=== PATIENT | female | born 1945 ===

== ENCOUNTER 2017-07-14 15:15 | Inpatient (IN) | payer MEDICARE ==
[2017-07-14 15:15] VITALS: BMI 29.9
[2017-07-14] MEDS ORDERED: Albuterol-Ipratrop 3 mg / 0.5 (3 ml) UD ONE ×2 (15:30→15:56)
--- NOTE | 2017-07-14 15:51 | C.PDOC ---
History Of Present Illness 71 y/o female with past medical history of asthma, multiple meds at home including Advair disk and Ventolin inhaler, reports increasing SOB over last couple days, cough productive of yellow sputum, and feeling feverish. Pt states she has been taking Tylenol but notes she breaks out in a sweat after taking it. Patient was seen in the office by Dr. Pitts today, who sent her to the ER for admission. Patient reports prior hospitalizations for asthma but no intubations. Patient reports she is on daily prednisone for a renal problem. Time Seen by Provider: 07/14/17 15:42 Chief Complaint (Nursing): Shortness Of Breath History Per: Patient History/Exam Limitations: no limitations Onset/Duration Of Symptoms: Days Current Symptoms Are (Timing): Still Present Associated Symptoms: Fever, Productive Cough. denies: Chills, Chest Pain, Dizziness, Anxiety Past Medical History Reviewed: Historical Data, Nursing Documentation, Vital Signs Vital Signs: Last Vital Signs Temp 98.1 F 07/14/17 15:45 Pulse 102 H 07/14/17 16:19 Resp 18 07/14/17 16:19 BP 131/78 07/14/17 16:19 Pulse Ox 100 07/14/17 16:19 - Medical History PMH: Anemia, Asthma, Bronchitis, HTN, Hypercholesterolemia Denies: Chronic Kidney Disease - [facility] Procedures COLONOSCOPY (11/20/13) ESOPHAGOGASTRODUODENOSCOPY [EGD] W/CLOSED BIOPSY (03/24/13) Family History: States: Unknown Family Hx Review Of Systems Except As Marked, All Systems Reviewed And Found Negative. Constitutional: Negative for: Fever, Chills Cardiovascular: Negative for: Chest Pain Respiratory: Positive for: Cough, Shortness of Breath Gastrointestinal: Negative for: Nausea, Vomiting, Abdominal Pain Musculoskeletal: Negative for: Neck Pain Skin: Negative for: Rash Neurological: Negative for: Headache, Dizziness Physical Exam - Physical Exam Appears: In Acute Distress (moderately short of breath) Skin: Normal Color, Warm, Dry Head: Atraumatic Eye(s): bilateral: Normal Inspection Nose: Normal Oral Mucosa: Moist Neck: Normal, Normal ROM Lymphatic: No Adenopathy Chest: Symmetrical Cardiovascular: Rhythm Regular (Tachycardic) Respiratory: Decreased Breath Sounds, Wheezing (inspiratory and expiratory) Gastrointestinal/Abdominal: Normal Exam, Soft Extremity: Normal ROM, No Pedal Edema Neurological/Psych: Oriented x3, Normal Speech (but in short sentences), Normal Cognition Gait: Steady ED Course And Treatment - Laboratory Results Result Diagrams: 07/14/17 16:01 07/14/17 16:01 Lab Interpretation: No Acute Changes (chronic renal insufficiency) - Radiology CXR: Interpreted by Me CXR Interpretation: Yes: No Acute Disease, Cardiomegaly Reevaluation Time: 17:46 Reassessment Condition: Unchanged (Patient did imporoved after nebulizer treatments but became acutely short of breath again after ambulating to the bathroom.) Disposition Discussed With : Cori Pitts Doctor Will See Patient In The: ED - Disposition Disposition: HOSPITALIZED Disposition Time: 17:47 Condition: FAIR - POA Present On Arrival: None - Clinical Impression Clinical Impression: Status asthmaticus - Scribe Statement The provider has reviewed the documentation as recorded by the Scribe SM All medical record entries made by the Scribe were at my direction and personally dictated by me. I have reviewed the chart and agree that the record accurately reflects my personal performance of the history, physical exam, medical decision making, and the department course for this patient. I have also personally directed, reviewed, and agree with the discharge instructions and disposition.
[2017-07-14] MEDS ORDERED: Albuterol-Ipratrop 3 mg / 0.5 (3 ml) UD IH STA (15:52)
[2017-07-14] MEDS ORDERED: Albuterol 0.083% Inhal Sol (2.5 mg/3 mL) UD IH STA (15:52)
[2017-07-14] MEDS ORDERED: Albuterol 0.042% Inhal Sol (1.25 mg/3 mL) UD ONE ×2 (15:57→17:19)
[2017-07-14 16:08] LABS: BASO # 0.1 K/uL (0.0-0.2); BASO % 0.9 % (0.0-2.0); EOS # 0.2 K/uL (0.0-0.7); EOS % 2.9 % (0.0-4.0); HEMATOCRIT 34.5 % (34.0-47.0); LYMPH # 1.8 K/uL (1.0-4.3); LYMPH % 22.2 % (20.0-40.0); MEAN CELL VOLUME 83.4 fL (81.0-99.0); MEAN CORPUSCULAR HEMOGLOBIN 27.2 pg (27.0-31.0); MEAN CORPUSCULAR HGB CONC 32.6 g/dL (33.0-37.0); MEAN PLATELET VOLUME 8.4 fL (7.2-11.7); MONO # 0.8 K/uL (0.0-0.8); MONO % 10.1 % (0.0-10.0); RED CELL DISTRIBUTION WIDTH 13.6 % (11.5-14.5); WHITE BLOOD COUNT 7.9 K/uL (4.8-10.8)
--- NOTE | 2017-07-14 16:08 | RAD ---
PROCEDURE: CHEST RADIOGRAPH, 1 VIEW HISTORY: SOB COMPARISON: None available. FINDINGS: LUNGS: Clear. PLEURA: No pneumothorax or pleural fluid seen. CARDIOVASCULAR: Normal. OSSEOUS STRUCTURES: No significant abnormalities. VISUALIZED UPPER ABDOMEN: Normal. OTHER FINDINGS: None. IMPRESSION: No active disease.
[2017-07-14 16:23] LABS: ALB/GLOB RATIO 1.3 (1.0-2.1); BILIRUBIN,TOTAL 0.7 mg/dL (0.2-1.3); POTASSIUM 4.7 mmol/L (3.6-5.2); TOTAL PROTEIN 7.5 g/dL (6.3-8.3)
[2017-07-14] MEDS ORDERED: Promethazine/Cod 6.25mg-10mg/5ml Syr UD ONE (18:06)
[2017-07-14] MEDS: Promethazine/Cod 6.25mg-10mg/5ml Syr UD PO PRN (18:09)
[2017-07-14] MEDS ORDERED: Albuterol 0.083% Inhal Sol (2.5 mg/3 mL) UD INH PRN (18:15)
[2017-07-14] MEDS ORDERED: Sodium Chloride 0.45% 1,000 ML IV SCH (18:30)
[2017-07-14] MEDS: Ipratropium 0.02% Inhal Soln (0.5 mg/2.5 ml) UD IH SCH ×2 (21:02→21:03)
[2017-07-14] MEDS: Albuterol 0.083% Inhal Sol (2.5 mg/3 mL) UD INH SCH (21:02)
[2017-07-14] MEDS: Budesonide 0.5 mg/2 ml Inhal Susp UD INH SCH ×2 (21:03)
[2017-07-14] MEDS: Ergocalciferol 50,000 Intl Units Cap PO SCH ×2 (21:47→22:21)
[2017-07-15] MEDS: Albuterol 0.083% Inhal Sol (2.5 mg/3 mL) UD INH SCH ×3 (01:04→13:16)
[2017-07-15] MEDS: Ipratropium 0.02% Inhal Soln (0.5 mg/2.5 ml) UD IH SCH ×3 (01:04→13:16)
[2017-07-15] MEDS ORDERED: MYCOPHENOLIC ACID 360 MG PO SCH (06:00)
[2017-07-15] MEDS: Home Med 1 UNIT PO SCH ×2 (06:28→19:25)
[2017-07-15] MEDS: Budesonide 0.5 mg/2 ml Inhal Susp UD INH SCH (07:13)
[2017-07-15] MEDS ORDERED: Azithromycin 500 MG in Sodium Chloride 0.9% 250 ML IVPB SCH (10:00)
[2017-07-15] MEDS: Azithromycin 500 MG in Sodium Chloride 0.9% 250 ML IVPB SCH (10:02)
--- NOTE | 2017-07-15 13:59 | VASCLAB ---
PROCEDURE: Lower Extremity Venous Duplex Exam. HISTORY: DVT PRIORS: None. TECHNIQUE: Bilateral common femoral, femoral, popliteal and posterior tibial, peroneal and great saphenous veins were evaluated. Flow was assessed with color Doppler, compressibility, assessment of phasic flow and augmentation response. Report prepared by DAVID Ferris, RVT FINDINGS: RIGHT: 1. Common Femoral Vein: 1.1. Compressibility - Fully compressible: Thrombus - None : Flow - Phasic: Augmentation -Normal: Reflux - None. 2. Femoral Vein: 2.1. Compressibility - Fully compressible: Thrombus - None : Flow - Phasic: Augmentation -Normal: Reflux - None. 3. Popliteal Vein: 3.1. Compressibility - Fully compressible: Thrombus - None : Flow - Phasic: Augmentation -Normal: Reflux - None. 4. Posterior Tibial Vein: 4.1. Compressibility - Fully compressible: Thrombus - None: Flow - Phasic: Augmentation -Normal: Reflux - None. 5. Peroneal Vein: 5.1. Compressibility - Fully compressible: Thrombus - None: Flow - Phasic: Augmentation -Normal: Reflux - None. 6. Great Saphenous Vein: 6.1. Compressibility - Fully compressible: Thrombus - None: Flow - Phasic: Augmentation - Normal: Reflux - None. LEFT: 1. Common Femoral Vein: 1.1. Compressibility - Fully compressible: Thrombus - None: Flow - Phasic: Augmentation -Normal: Reflux - None. 2. Femoral Vein: 2.1. Compressibility - Fully compressible: Thrombus - None: Flow - Phasic: Augmentation -Normal: Reflux - None. 3. Popliteal Vein: 3.1. Compressibility - Fully compressible: Thrombus - None : Flow - Phasic: Augmentation -Normal: Reflux - None. 4. Posterior Tibial Vein: 4.1. Compressibility - Fully compressible: Thrombus - None: Flow - Phasic: Augmentation -Normal: Reflux - None. 5. Peroneal Vein: 5.1. Compressibility - Fully compressible: Thrombus - None: Flow - Phasic: Augmentation -Normal: Reflux - None. 6. Great Saphenous Vein: 6.1. Compressibility - Fully compressible: Thrombus - None: Flow - Phasic: Augmentation - Normal: Reflux - None. OTHER FINDINGS: Right: None significant. Left: None significant. IMPRESSION: Right: No evidence of deep or superficial vein thrombosis of the right lower extremity. Normal valve function noted of the right side. Left: No evidence of deep or superficial vein thrombosis of the left lower extremity. Normal valve function noted of the left side.
[2017-07-15] MEDS ORDERED: Albuterol-Ipratrop 3 mg / 0.5 (3 ml) UD INH SCH (14:00)
[2017-07-15] MEDS ORDERED: Home Med 1 UNIT OU SCH (14:41)
--- NOTE | 2017-07-15 15:15 | CP.PCM.CON ---
History of Present Illness - History of Present Illness History of Present Illness: Initial Nephrology Consultation: Assessment: Stable Acute asthma exacerbation Sjogren syndrome with renal involvement (s/p kidney biopsy aug 2016) Hypertensive Chronic Kidney Disease (I12.9) Chronic Kidney Disease (N18.3) Stage 3 without proteinuria Anemia (D64.9), HTN (I12.9) Obesity Plan No acute need for renal replacement therapy at this time. Hypertension control with meds as ordered. Monitor Input/Output, daily weights and renal function with basic metabolic panel continue with Myfortic 2 tab bid. she is on IV steroids hence home dose prednisone 5 mg can be deferred. Anemia stable, LATRICE not indicated. Dose meds/antibiotics for reduced GFR. Avoid fleets enema/magnesium based laxatives. Avoid nephrotoxins/NSAIDs/ iodinated contrast (unless needed emergently) Glycemic control Further work up/management as per primary team Thanks for allowing me to participate in care of your patient. Will follow patient with you. Please call if any Qs Dr Zaid Wilson Office: [phone] Chief Complaint; Shortness of breath HPI: Pt is a 71 F with hx of bronchil asthma, obesity, CKD stage 3 (baseline cr 1.8) Sjogren syndrome with renal involvement (s/p kidney biopsy aug 2016) treated with plaquenil, myfortic and low dose prednisone came to hospital with c /o SOB with cough for last few days and being managed for asthma exacerbation. renal consult for CKD management Denies chest pain, palpitation, c/o shortness of breath, denies leg swelling Denies blood or bubbles in urine Denies OTC/herbal meds or NSAIDs No recent iodinated contrast exposure. No obvious episodes of low BP. ROS: Constitutional Symptoms: Denies fever. No chills. No Recent Weight Changes Eyes: denies change in vision, denies watery eyes, denies double vision Ears/Nose/Mouth/Throat: Denies Abnormal Taste. No Bad breath no Bad Taste. Cardiovascular: No chest pain. No palpitations. Pulmonary: c/o shortness of breath c/o cough. Gastrointestinal: denies abdominal pain No nausea. No vomiting. Denies change in bowel habits. Denies Bleeding Genitourinary: No Change in force of strain when urinating. No increase in urinary frequency. No pain while urinating. Denies blood in urine. Neurological: Denies headaches. No dizziness. Denies loss of balance. Denies weakness, denies tingling/numbness Dermatological: No Rash or Bruising or ulcers. Psychiatric: Denies Anxiety. No depression. Denies hallucinations. Rheumatological: No joint pain. Denies Joint swelling Endocrine: Denies tiredness/Fatigue denies Heat/Cold Intolerance. All other negative Physical Examination: General Appearance: Comfortable, in no acute respiratory distress, co-operative . obese Vitals reviewed and noted as below Head; Atraumatic, normocephalic ENT: no ulcers no thrush. Tongue is midline. Oropharynx: no rash or ulcers. EYES: Pupils are equal, round and reactive to light accommodation. Eye muscles and extraocular movement intact. Sclera is anicteric. Neck; supple no lymphadenopathy, no thyromegaly or bruit Lungs: mildly increased respiratory rate/effort. Breath sounds bilateral with basal expiratory wheezing Heart: Normal rate. s1s2 normal. No rub or gallop. Extremities: no edema. No varicose veins Neurological: Patient is alert, awake and oriented to person, place and time. No focal deficit. Strength bilateral appropriate and equal Skin: Warm and dry. Normal turgor. No rash. Palpitation: Normal elasticity for age Abdomen: Abdomen is soft. Bowel sounds +. There is no abdominal tenderness, no guarding/rigidity no organomegaly Psych: normal insight and normal affect/mood MSK: no joint tenderness or swelling. Digits and nails normal, no deformity : kidney or bladder not palpable Labs/imaging reviewed. Past medical history, past surgical history, family history, social history, allergy reviewed and noted as below Family hx: no hx of CKD. 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 urine pro/cr 160 mg/day Past Patient History - Past Medical History & Family History Past Medical History?: Yes - Past Social History Smoking Status: Never Smoked - CARDIAC Hx Hypercholesterolemia: Yes Hx Hypertension: Yes - PULMONARY Hx Asthma: Yes Hx Bronchitis: Yes - NEUROLOGICAL Hx Neurological Disorder: No - HEENT Hx HEENT Problems: Yes Other/Comment: HX OF LEFT EYE MINI STROKE - RENAL Hx Chronic Kidney Disease: No - ENDOCRINE/METABOLIC Hx Endocrine Disorders: No - HEMATOLOGICAL/ONCOLOGICAL Hx Anemia: Yes - INTEGUMENTARY Hx Dermatological Problems: No - MUSCULOSKELETAL/RHEUMATOLOGICAL Hx Musculoskeletal Disorders: Yes Hx Falls: No Other/Comment: SJOGRENS SYNDROME - GASTROINTESTINAL Hx Gastrointestinal Disorders: Yes Hx Gastroesophageal Reflux: Yes - GENITOURINARY/GYNECOLOGICAL Hx Genitourinary Disorders: No - PSYCHIATRIC Hx Substance Use: No - SURGICAL HISTORY Hx Surgeries: Yes Hx Section: Yes (X 2) Hx Hysterectomy: Yes - ANESTHESIA Hx Anesthesia: Yes Hx Anesthesia Reactions: No Hx Malignant Hyperthermia: No Has any member of the family had a problem w/ anesthesia?: No Meds Allergies/Adverse Reactions: Allergies Allergy/AdvReac Type Severity Reaction Status Date / Time meperidine [From Demerol] Allergy Verified 07/14/17 15:44 Penicillins Allergy Verified 07/14/17 15:44 - Medications Medications: Current Medications Albuterol Sulfate (Albuterol 0.083% Inhal Rosibel (2.5 Mg/3 Ml) Ud) 2.5 mg INH RQ4 PRN PRN Reason: Wheezing Albuterol/Ipratropium (Duoneb 3 Mg/0.5 Mg (3 Ml) Ud) 3 ml INH RQ6 [facility] Amlodipine Besylate (Norvasc) 5 mg PO DAILY [facility] Last Admin: 07/15/17 11:00 Dose: 5 mg Budesonide (Pulmicort Respules) 0.5 mg INH RBID [facility] Last Admin: 07/15/17 07:13 Dose: 0.5 mg Ergocalciferol (Drisdol 50,000 Intl Units Cap) 1 cap PO Q7D [facility] Last Admin: 07/14/17 22:21 Dose: Not Given Famotidine (Pepcid) 20 mg PO BID [facility] Last Admin: 07/15/17 10:02 Dose: 20 mg Heparin Sodium (Porcine) (Heparin) 5,000 units SC Q8 [facility] Last Admin: 07/15/17 14:13 Dose: Not Given Home Med (Home Med) 2 unit PO 0600,1900 [facility] Last Admin: 07/15/17 06:28 Dose: 2 unit Home Med (Home Med) 1 unit OU Q4 [facility] Hydroxychloroquine Sulfate (Plaquenil) 200 mg PO BID [facility] Last Admin: 07/15/17 10:02 Dose: 200 mg Sodium Chloride (Sodium Chloride 0.45%) 1,000 mls @ 40 mls/hr IV .Q24H [facility] Stop: 07/15/17 18:29 Last Admin: 07/14/17 18:54 Dose: 40 mls/hr Azithromycin 500 mg/ Sodium (Chloride) 250 mls @ 167 mls/hr IVPB DAILY [facility] Last Admin: 07/15/17 10:02 Dose: 167 mls/hr Methylprednisolone (Solu-Medrol) 60 mg IV Q6H [facility] Last Admin: 07/15/17 14:33 Dose: 60 mg Montelukast Sodium (Singulair) 10 mg PO HS [facility] Last Admin: 07/14/17 21:47 Dose: 10 mg Promethazine HCl/Codeine (Phenergan/Codeine Oral Syrup) 5 ml PO Q4 PRN PRN Reason: Cough Last Admin: 07/14/17 18:09 Dose: 5 ml Results - Vital Signs Recent Vital Signs: Last Vital Signs Temp 97.4 F L 07/15/17 07:56 Pulse 69 07/15/17 07:56 Resp 18 07/15/17 07:56 BP 112/72 07/15/17 07:56 Pulse Ox 98 07/15/17 07:56 - Labs Result Diagrams: 07/14/17 16:01 07/14/17 16:01 Labs: Laboratory Results - last 24 hr 07/14/17 07/14/17 07/14/17 16:01 16:01 16:42 WBC 7.9 RBC 4.14 Hgb 11.3 Hct 34.5 MCV 83.4 MCH 27.2 MCHC 32.6 L RDW 13.6 Plt Count 261 MPV 8.4 Neut % (Auto) 63.9 Lymph % (Auto) 22.2 [place] % (Auto) 10.1 H Eos % (Auto) 2.9 Baso % (Auto) 0.9 Neut # 5.1 Lymph # 1.8 [place] # 0.8 Eos # 0.2 Baso # 0.1 D-Dimer, Quantitative 544 H Sodium 137 Potassium 4.7 Chloride 103 Carbon Dioxide 22 Anion Gap 17 BUN 24 H Creatinine 1.7 H Est GFR ( Amer) 36 Est GFR (Non-Af Amer) 30 Random Glucose 97 Calcium 9.0 Total Bilirubin 0.7 AST 34 ALT 30 Alkaline Phosphatase 65 NT-Pro-B Natriuret Pep 121 Total Protein 7.5 Albumin 4.3 Globulin 3.2 Albumin/Globulin Ratio 1.3
--- NOTE | 2017-07-15 15:32 | NM ---
COMPARISON: Chest radiograph 07/14/2017. TECHNIQUE: 9.3 mCi Xe-133 Gas. 3.8 mCI technetium 99-m MAA administered intravenously. FINDINGS: VENTILATION COMPONENT: Normal. PERFUSION COMPONENT: Normal. IMPRESSION: Lowprobability ventilation perfusion scan for pulmonary embolism.
--- NOTE | 2017-07-15 15:46 | CP.PCM.HP ---
History of Present Illness - History of Present Illness History of Present Illness: Pt is a 71 year old female who presented to my office on 07/14/17 with wheezing and several sob of several days. Pt states for the last week she has had sob, wheezing, cough productive of yellow sptum and CRAWLEY. PT reports some subjective fever for witch she has bee taking Prn Tylenol. PT reports running out of inhalers as she was using them so often. PMHx: Osteoporosis Chronic tubulo-interstitial nephritis Asthma Hypercholesterolemia Disorder of bone Anemia Chronic Kidney disease Sicca Syndrome hypertension Allergies: Demerol Penicillin Family hx: Father- Cancer Mother- HTN Social Hx: neg. Smoker neg. ETOH Neg. Drugs Current meds: Advair Diskus 250 mcg-50 mcg 1 unit inhale BID Ventolin HFA 90 mcg 1-2 puffs inhale 4x/day PRN Albuterol sulfate 2.5 mg 3 ml inhale 4x/day Myfortic 360mg 2 tabs PO BID Prednisone 5 mg 1 tab PO QD Vitamin D3 1 cap po weekly Mycophenolate 360 mg 2 tabs PO BID Plaquenil 200 mg 1 tab PO BID Amlodipine 5 mg 1 tab PO QD Present on Admission - Present on Admission Any Indicators Present on Admission: No Review of Systems - Constitutional Constitutional: Chills, Fever - Cardiovascular Cardiovascular: Dyspnea on Exertion. absent: Diaphoresis, Pedal Edema, Syncope - Respiratory Respiratory: Cough, Dyspnea, Dyspnea on Exertion, Chest Congestion, Change in Mucous Color. absent: Hemoptysis - Gastrointestinal Gastrointestinal: absent: Abdominal Pain, Vomiting - Genitourinary Genitourinary: absent: Difficulty Urinating Past Patient History - Past Medical History & Family History Past Medical History?: Yes - Past Social History Smoking Status: Never Smoked - CARDIAC Hx Hypercholesterolemia: Yes Hx Hypertension: Yes - PULMONARY Hx Asthma: Yes Hx Bronchitis: Yes - NEUROLOGICAL Hx Neurological Disorder: No - HEENT Hx HEENT Problems: Yes Other/Comment: HX OF LEFT EYE MINI STROKE - RENAL Hx Chronic Kidney Disease: No - ENDOCRINE/METABOLIC Hx Endocrine Disorders: No - HEMATOLOGICAL/ONCOLOGICAL Hx Anemia: Yes - INTEGUMENTARY Hx Dermatological Problems: No - MUSCULOSKELETAL/RHEUMATOLOGICAL Hx Musculoskeletal Disorders: Yes Hx Falls: No Other/Comment: SJOGRENS SYNDROME - GASTROINTESTINAL Hx Gastrointestinal Disorders: Yes Hx Gastroesophageal Reflux: Yes - GENITOURINARY/GYNECOLOGICAL Hx Genitourinary Disorders: No - PSYCHIATRIC Hx Substance Use: No - SURGICAL HISTORY Hx Surgeries: Yes Hx Section: Yes (X 2) Hx Hysterectomy: Yes - ANESTHESIA Hx Anesthesia: Yes Hx Anesthesia Reactions: No Hx Malignant Hyperthermia: No Has any member of the family had a problem w/ anesthesia?: No Meds Allergies/Adverse Reactions: Allergies Allergy/AdvReac Type Severity Reaction Status Date / Time meperidine [From Demerol] Allergy Verified 07/14/17 15:44 Penicillins Allergy Verified 07/14/17 15:44 Physical Exam - Constitutional Appears: Non-toxic - Head Exam Head Exam: ATRAUMATIC - Eye Exam Eye Exam: EOMI, Normal appearance - ENT Exam ENT Exam: Mucous Membranes Moist - Neck Exam Neck exam: Positive for: Normal Inspection - Respiratory Exam Respiratory Exam: Prolonged Expiratory Phase, Rhonchi, Wheezes - Cardiovascular Exam Cardiovascular Exam: REGULAR RHYTHM, RRR, +S1, +S2. absent: JVD, Rubs - GI/Abdominal Exam GI & Abdominal Exam: Normal Bowel Sounds, Soft - Exam Exam: NORMAL INSPECTION External exam: NORMAL EXTERNAL EXAM - Extremities Exam Extremities exam: Positive for: normal inspection. Negative for: calf tenderness - Neurological Exam Neurological exam: Oriented x3 - Psychiatric Exam Psychiatric exam: Normal Affect, Normal Mood - Skin Skin Exam: Intact, Normal Color Results - Vital Signs Recent Vital Signs: Last Vital Signs Temp 97.4 F L 07/15/17 07:56 Pulse 69 07/15/17 07:56 Resp 18 07/15/17 07:56 BP 112/72 07/15/17 07:56 Pulse Ox 98 07/15/17 07:56 - Labs Result Diagrams: 07/14/17 16:01 07/14/17 16:01 Labs: Laboratory Results - last 24 hr 07/14/17 07/14/17 07/14/17 16:01 16:01 16:42 WBC 7.9 RBC 4.14 Hgb 11.3 Hct 34.5 MCV 83.4 MCH 27.2 MCHC 32.6 L RDW 13.6 Plt Count 261 MPV 8.4 Neut % (Auto) 63.9 Lymph % (Auto) 22.2 [place] % (Auto) 10.1 H Eos % (Auto) 2.9 Baso % (Auto) 0.9 Neut # 5.1 Lymph # 1.8 [place] # 0.8 Eos # 0.2 Baso # 0.1 D-Dimer, Quantitative 544 H Sodium 137 Potassium 4.7 Chloride 103 Carbon Dioxide 22 Anion Gap 17 BUN 24 H Creatinine 1.7 H Est GFR ( Amer) 36 Est GFR (Non-Af Amer) 30 Random Glucose 97 Calcium 9.0 Total Bilirubin 0.7 AST 34 ALT 30 Alkaline Phosphatase 65 NT-Pro-B Natriuret Pep 121 Total Protein 7.5 Albumin 4.3 Globulin 3.2 Albumin/Globulin Ratio 1.3 Assessment & Plan - Assessment and Plan (Free Text) Assessment: Asthma exacerbation; severe///still with significant sob with minimal activity bronchitis sjogrens chronic renal insuff admitted to telemetry V/Q is low prob and venous dopplers are negative solumedrol abnx nebx oxygen spoke to Dr. Pak last night and today with nephro Labs ordered for AM pt refused sq heparin, added compression boots for dvt prophylaxis - Date & Time Date: 07/15/17 Time: 16:19
--- NOTE | 2017-07-15 18:51 | CP.PCM.CON ---
History of Present Illness - History of Present Illness History of Present Illness: admitted with status asthmaticus, feels somewhat better today. pt admits to using advair prn only, not daily, leading to an exacerbation in the last 1 month Review of Systems - Constitutional Constitutional: Fatigue, Weakness - Respiratory Respiratory: Cough, Dyspnea on Exertion, Wheezing, Chest Congestion Past Patient History - Past Medical History & Family History Past Medical History?: Yes - Past Social History Smoking Status: Never Smoked - CARDIAC Hx Hypercholesterolemia: Yes Hx Hypertension: Yes - PULMONARY Hx Asthma: Yes Hx Bronchitis: Yes - NEUROLOGICAL Hx Neurological Disorder: No - HEENT Hx HEENT Problems: Yes Other/Comment: HX OF LEFT EYE MINI STROKE - RENAL Hx Chronic Kidney Disease: No - ENDOCRINE/METABOLIC Hx Endocrine Disorders: No - HEMATOLOGICAL/ONCOLOGICAL Hx Anemia: Yes - INTEGUMENTARY Hx Dermatological Problems: No - MUSCULOSKELETAL/RHEUMATOLOGICAL Hx Musculoskeletal Disorders: Yes Hx Falls: No Other/Comment: SJOGRENS SYNDROME - GASTROINTESTINAL Hx Gastrointestinal Disorders: Yes Hx Gastroesophageal Reflux: Yes - GENITOURINARY/GYNECOLOGICAL Hx Genitourinary Disorders: No - PSYCHIATRIC Hx Substance Use: No - SURGICAL HISTORY Hx Surgeries: Yes Hx Section: Yes (X 2) Hx Hysterectomy: Yes - ANESTHESIA Hx Anesthesia: Yes Hx Anesthesia Reactions: No Hx Malignant Hyperthermia: No Has any member of the family had a problem w/ anesthesia?: No Meds Allergies/Adverse Reactions: Allergies Allergy/AdvReac Type Severity Reaction Status Date / Time meperidine [From Demerol] Allergy Verified 07/14/17 15:44 Penicillins Allergy Verified 07/14/17 15:44 - Medications Medications: Current Medications Albuterol Sulfate (Albuterol 0.083% Inhal Rosibel (2.5 Mg/3 Ml) Ud) 2.5 mg INH RQ4 PRN PRN Reason: Wheezing Albuterol/Ipratropium (Duoneb 3 Mg/0.5 Mg (3 Ml) Ud) 3 ml INH RQ6 [facility] Amlodipine Besylate (Norvasc) 5 mg PO DAILY [facility] Last Admin: 07/15/17 11:00 Dose: 5 mg Budesonide (Pulmicort Respules) 0.5 mg INH RBID [facility] Last Admin: 07/15/17 07:13 Dose: 0.5 mg Ergocalciferol (Drisdol 50,000 Intl Units Cap) 1 cap PO Q7D [facility] Last Admin: 07/14/17 22:21 Dose: Not Given Famotidine (Pepcid) 20 mg PO BID [facility] Last Admin: 07/15/17 18:08 Dose: 20 mg Heparin Sodium (Porcine) (Heparin) 5,000 units SC Q8 [facility] Last Admin: 07/15/17 14:13 Dose: Not Given Home Med (Home Med) 2 unit PO 0600,1900 [facility] Last Admin: 07/15/17 06:28 Dose: 2 unit Home Med (Home Med) 1 unit OU Q4 [facility] Hydroxychloroquine Sulfate (Plaquenil) 200 mg PO BID [facility] Last Admin: 07/15/17 18:08 Dose: 200 mg Azithromycin 500 mg/ Sodium (Chloride) 250 mls @ 167 mls/hr IVPB DAILY [facility] Last Admin: 07/15/17 10:02 Dose: 167 mls/hr Methylprednisolone (Solu-Medrol) 60 mg IV Q6H [facility] Last Admin: 07/15/17 18:08 Dose: 60 mg Montelukast Sodium (Singulair) 10 mg PO HS [facility] Last Admin: 07/14/17 21:47 Dose: 10 mg Promethazine HCl/Codeine (Phenergan/Codeine Oral Syrup) 5 ml PO Q4 PRN PRN Reason: Cough Last Admin: 07/14/17 18:09 Dose: 5 ml Physical Exam - Constitutional Appears: Chronically Ill - Head Exam Head Exam: ATRAUMATIC, NORMOCEPHALIC - Eye Exam Eye Exam: Normal appearance - ENT Exam ENT Exam: Mucous Membranes Moist - Neck Exam Neck exam: Positive for: Normal Inspection - Respiratory Exam Respiratory Exam: Decreased Breath Sounds, Prolonged Expiratory Phase, Wheezes - Cardiovascular Exam Cardiovascular Exam: REGULAR RHYTHM, +S1, +S2 - GI/Abdominal Exam GI & Abdominal Exam: Normal Bowel Sounds - Rectal Exam Rectal Exam: Deferred - Neurological Exam Neurological exam: Alert, Oriented x3 - Psychiatric Exam Psychiatric exam: Normal Affect, Normal Mood - Skin Skin Exam: Intact Results - Vital Signs Recent Vital Signs: Last Vital Signs Temp 98.5 F 07/15/17 16:18 Pulse 113 H 07/15/17 16:18 Resp 20 07/15/17 16:18 BP 106/66 07/15/17 16:18 Pulse Ox 97 07/15/17 16:18 - Labs Result Diagrams: 07/14/17 16:01 07/14/17 16:01 Assessment & Plan (1) Status asthmaticus Status: Acute (2) Sjoegren syndrome Status: Chronic (3) Chronic renal insufficiency, stage III (moderate) Status: Chronic
[2017-07-15 19:05] LABS: ALB/GLOB RATIO 0.9 (1.0-2.1); BILIRUBIN,TOTAL 0.5 mg/dL (0.2-1.3); CALCIUM 8.4 mg/dl (8.6-10.4); POTASSIUM 4.5 mmol/L (3.6-5.2); TOTAL PROTEIN 7.9 g/dL (6.3-8.3)
[2017-07-15] MEDS: Albuterol-Ipratrop 3 mg / 0.5 (3 ml) UD INH SCH (19:08)
[2017-07-15] MEDS: Fluticasone-Salmeterol 500-50mcg Diskus INH SCH (19:11)
[2017-07-15] MEDS: guaiFENesin 600 mg ER Tab PO SCH (21:23)
[2017-07-16] MEDS: BLINK OU SCH ×6 (00:40→19:49)
[2017-07-16] MEDS: Albuterol-Ipratrop 3 mg / 0.5 (3 ml) UD INH SCH ×4 (01:10→19:13)
[2017-07-16] MEDS: Home Med 1 UNIT PO SCH ×2 (06:35→19:45)
[2017-07-16] MEDS: guaiFENesin 600 mg ER Tab PO SCH ×2 (09:05→17:02)
[2017-07-16] MEDS: Azithromycin 500 MG in Sodium Chloride 0.9% 250 ML IVPB SCH (10:25)
[2017-07-16] MEDS: Fluticasone-Salmeterol 500-50mcg Diskus INH SCH ×2 (11:22→19:13)
--- NOTE | 2017-07-16 14:50 | CP.PCM.PN ---
Subjective - Date & Time of Evaluation Date of Evaluation: 07/16/17 Time of Evaluation: 14:48 - Subjective Subjective: Pt still feels sob but repors still sob when she walks a little. Less cough , still wheezing no fever, no chest pain Objective - Vital Signs/Intake and Output Vital Signs (last 24 hours): Temp Pulse Resp BP Pulse Ox 97.9 F 91 H 20 111/72 99 07/16/17 07:59 07/16/17 07:59 07/16/17 07:59 07/16/17 07:59 07/16/17 07:59 Intake and Output: 07/16/17 07/16/17 06:59 18:59 Intake Total 710 550 Balance 710 550 - Medications Medications: Current Medications Albuterol Sulfate (Albuterol 0.083% Inhal Rosibel (2.5 Mg/3 Ml) Ud) 2.5 mg INH RQ4 PRN PRN Reason: Wheezing Albuterol/Ipratropium (Duoneb 3 Mg/0.5 Mg (3 Ml) Ud) 3 ml INH RQ6 [facility] Last Admin: 07/16/17 14:30 Dose: 3 ml Amlodipine Besylate (Norvasc) 5 mg PO DAILY [facility] Last Admin: 07/16/17 09:05 Dose: 5 mg Ergocalciferol (Drisdol 50,000 Intl Units Cap) 1 cap PO Q7D [facility] Last Admin: 07/14/17 22:21 Dose: Not Given Famotidine (Pepcid) 20 mg PO BID [facility] Last Admin: 07/16/17 09:05 Dose: 20 mg Guaifenesin (Mucinex La) 600 mg PO BID [facility] Last Admin: 07/16/17 09:05 Dose: 600 mg Home Med (Home Med) 2 unit PO 0600,1900 [facility] Last Admin: 07/16/17 06:35 Dose: 2 unit Home Med (Home Med) 1 unit OU Q4 [facility] Last Admin: 07/16/17 11:49 Dose: 1 unit Hydroxychloroquine Sulfate (Plaquenil) 200 mg PO BID [facility] Last Admin: 07/16/17 10:35 Dose: 200 mg Azithromycin 500 mg/ Sodium (Chloride) 250 mls @ 167 mls/hr IVPB DAILY [facility] Last Admin: 07/16/17 10:25 Dose: 167 mls/hr Methylprednisolone (Solu-Medrol) 60 mg IV Q6H [facility] Last Admin: 07/16/17 12:43 Dose: 60 mg Montelukast Sodium (Singulair) 10 mg PO HS [facility] Last Admin: 07/15/17 21:23 Dose: 10 mg Promethazine HCl/Codeine (Phenergan/Codeine Oral Syrup) 5 ml PO Q4 PRN PRN Reason: Cough Last Admin: 07/14/17 18:09 Dose: 5 ml Fluticasone/Salmeterol (Advair Diskus 500/50) 1 puff INH RQ12 [facility] Last Admin: 07/16/17 11:22 Dose: 1 puff Temazepam (Restoril) 15 mg PO HS PRN PRN Reason: Insomnia Last Admin: 07/15/17 21:29 Dose: 15 mg - Labs Labs: 07/14/17 16:01 07/15/17 17:28 - Constitutional Appears: Non-toxic - Eye Exam Eye Exam: Normal appearance - ENT Exam ENT Exam: Mucous Membranes Moist - Respiratory Exam Respiratory Exam: Rhonchi, Wheezes - Cardiovascular Exam Cardiovascular Exam: REGULAR RHYTHM, RRR - GI/Abdominal Exam GI & Abdominal Exam: Normal Bowel Sounds - Extremities Exam Extremities Exam: absent: Pedal Edema Assessment and Plan - Assessment and Plan (Free Text) Assessment: Status Asthmaticus bronchitis still very tight a little improvement nevetheless cont nebx, steroids anbx pulmonogyst follwoing renal sjogrens cont meds labs in am
--- NOTE | 2017-07-16 15:08 | CP.PCM.PN ---
Subjective - Date & Time of Evaluation Date of Evaluation: 07/16/17 Time of Evaluation: 15:07 - Subjective Subjective: Follow up Nephrology Consultation: Assessment: Stable Acute asthma exacerbation Sjogren syndrome with renal involvement (s/p kidney biopsy aug 2016) Hypertensive Chronic Kidney Disease (I12.9) Chronic Kidney Disease (N18.3) Stage 3 without proteinuria Anemia (D64.9), HTN (I12.9) Obesity Plan No acute need for renal replacement therapy at this time. Hypertension control with meds as ordered. Monitor Input/Output, daily weights and renal function with basic metabolic panel continue with Myfortic 2 tab bid. she is on IV steroids hence home dose prednisone 5 mg can be deferred. Anemia stable, LATRICE not indicated. Dose meds/antibiotics for reduced GFR. Avoid fleets enema/magnesium based laxatives. Avoid nephrotoxins/NSAIDs/ iodinated contrast (unless needed emergently) Glycemic control Further work up/management as per primary team Thanks for allowing me to participate in care of your patient. Will follow patient with you. Please call if any Qs Dr Zaid Wilson Office: [phone] Chief Complaint; Shortness of breath HPI: Pt is a 71 F with hx of bronchil asthma, obesity, CKD stage 3 (baseline cr 1.8) Sjogren syndrome with renal involvement (s/p kidney biopsy aug 2016) treated with plaquenil, myfortic and low dose prednisone came to hospital with c /o SOB with cough for last few days and being managed for asthma exacerbation. renal consult for CKD management c/o Denies chest pain, palpitation, c/o shortness of breath with wheezing although better, denies leg swelling Physical Examination: General Appearance: Comfortable, in no acute respiratory distress, co-operative . obese Vitals reviewed and noted as below Head; Atraumatic, normocephalic ENT: no ulcers no thrush. Tongue is midline. Oropharynx: no rash or ulcers. EYES: Pupils are equal, round and reactive to light accommodation. Eye muscles and extraocular movement intact. Sclera is anicteric. Neck; supple no lymphadenopathy, no thyromegaly or bruit Lungs: normal respiratory rate/effort. Breath sounds bilateral with basal expiratory wheezing Heart: Normal rate. s1s2 normal. No rub or gallop. Extremities: no edema. No varicose veins Neurological: Patient is alert, awake and oriented to person, place and time. No focal deficit. Strength bilateral appropriate and equal Skin: Warm and dry. Normal turgor. No rash. Palpitation: Normal elasticity for age Abdomen: Abdomen is soft. Bowel sounds +. There is no abdominal tenderness, no guarding/rigidity no organomegaly Psych: normal insight and normal affect/mood MSK: no joint tenderness or swelling. Digits and nails normal, no deformity : kidney or bladder not palpable Labs/imaging reviewed. Past medical history, past surgical history, family history, social history, allergy reviewed and noted as below Family hx: no hx of CKD. 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 urine pro/cr 160 mg/day Objective - Vital Signs/Intake and Output Vital Signs (last 24 hours): Temp Pulse Resp BP Pulse Ox 97.9 F 91 H 20 111/72 99 07/16/17 07:59 07/16/17 07:59 07/16/17 07:59 07/16/17 07:59 07/16/17 07:59 Intake and Output: 07/16/17 07/16/17 06:59 18:59 Intake Total 710 550 Balance 710 550 - Medications Medications: Current Medications Albuterol Sulfate (Albuterol 0.083% Inhal Rosibel (2.5 Mg/3 Ml) Ud) 2.5 mg INH RQ4 PRN PRN Reason: Wheezing Albuterol/Ipratropium (Duoneb 3 Mg/0.5 Mg (3 Ml) Ud) 3 ml INH RQ6 [facility] Last Admin: 07/16/17 14:30 Dose: 3 ml Amlodipine Besylate (Norvasc) 5 mg PO DAILY [facility] Last Admin: 07/16/17 09:05 Dose: 5 mg Amlodipine Besylate (Norvasc) 5 mg PO DAILY [facility] Ergocalciferol (Drisdol 50,000 Intl Units Cap) 1 cap PO Q7D [facility] Last Admin: 07/14/17 22:21 Dose: Not Given Famotidine (Pepcid) 20 mg PO BID [facility] Last Admin: 07/16/17 09:05 Dose: 20 mg Guaifenesin (Mucinex La) 600 mg PO BID [facility] Last Admin: 07/16/17 09:05 Dose: 600 mg Home Med (Home Med) 2 unit PO 0600,1900 [facility] Last Admin: 07/16/17 06:35 Dose: 2 unit Home Med (Home Med) 1 unit OU Q4 [facility] Last Admin: 07/16/17 11:49 Dose: 1 unit Home Med (Montelukast Sodium [Singulair]) 5 mg PO DAILY [facility] Home Med (Simvastatin [Zocor]) 10 mg PO HS [facility] Hydroxychloroquine Sulfate (Plaquenil) 200 mg PO BID [facility] Last Admin: 07/16/17 10:35 Dose: 200 mg Azithromycin 500 mg/ Sodium (Chloride) 250 mls @ 167 mls/hr IVPB DAILY [facility] Last Admin: 07/16/17 10:25 Dose: 167 mls/hr Methylprednisolone (Solu-Medrol) 60 mg IV Q6H [facility] Last Admin: 07/16/17 12:43 Dose: 60 mg Montelukast Sodium (Singulair) 10 mg PO HS [facility] Last Admin: 07/15/17 21:23 Dose: 10 mg Mycophenolate Mofetil (Cellcept) 500 mg PO BID [facility] Promethazine HCl/Codeine (Phenergan/Codeine Oral Syrup) 5 ml PO Q4 PRN PRN Reason: Cough Last Admin: 07/14/17 18:09 Dose: 5 ml Fluticasone/Salmeterol (Advair Diskus 500/50) 1 puff INH RQ12 [facility] Last Admin: 07/16/17 11:22 Dose: 1 puff Temazepam (Restoril) 15 mg PO HS PRN PRN Reason: Insomnia Last Admin: 07/15/17 21:29 Dose: 15 mg - Labs Labs: 07/14/17 16:01 07/15/17 17:28
[2017-07-16] MEDS ORDERED: Rosuvastatin Calcium 2.5 mg Tab PO SCH (22:00)
[2017-07-17] MEDS: BLINK OU SCH ×4 (00:41→12:54)
[2017-07-17] MEDS: Promethazine/Cod 6.25mg-10mg/5ml Syr UD PO PRN (00:54)
[2017-07-17] MEDS: Albuterol-Ipratrop 3 mg / 0.5 (3 ml) UD INH SCH ×4 (01:13→19:15)
[2017-07-17] MEDS: Home Med 1 UNIT PO SCH ×2 (06:54→18:28)
[2017-07-17] MEDS: Fluticasone-Salmeterol 500-50mcg Diskus INH SCH (07:41)
[2017-07-17 07:42] LABS: HEMATOCRIT 30.3 % (34.0-47.0); MEAN CELL VOLUME 83.7 fL (81.0-99.0); MEAN CORPUSCULAR HEMOGLOBIN 27.5 pg (27.0-31.0); MEAN CORPUSCULAR HGB CONC 32.9 g/dL (33.0-37.0); RED CELL DISTRIBUTION WIDTH 13.7 % (11.5-14.5)
[2017-07-17 07:45] LABS: WHITE BLOOD COUNT 17.3 K/uL (4.8-10.8)
[2017-07-17 08:06] LABS: ALB/GLOB RATIO 1.4 (1.0-2.1); BILIRUBIN,TOTAL 0.4 mg/dL (0.2-1.3); CALCIUM 7.9 mg/dl (8.6-10.4); POTASSIUM 4.3 mmol/L (3.6-5.2); TOTAL PROTEIN 5.8 g/dL (6.3-8.3)
--- NOTE | 2017-07-17 08:57 | CP.PCM.PN ---
Subjective - Date & Time of Evaluation Date of Evaluation: 07/17/17 Time of Evaluation: 08:56 - Subjective Subjective: Follow up Nephrology Consultation: Assessment: Stable Acute asthma exacerbation Sjogren syndrome with renal involvement (s/p kidney biopsy aug 2016) Hypertensive Chronic Kidney Disease (I12.9) Chronic Kidney Disease (N18.3) Stage 3 without proteinuria Anemia (D64.9), HTN (I12.9) Obesity Plan No acute need for renal replacement therapy at this time. Hypertension control with meds as ordered. Monitor Input/Output, daily weights and renal function with basic metabolic panel continue with Myfortic 2 tab bid. she is on IV steroids hence home dose prednisone 5 mg can be deferred. d/c cellcept as pt already on myfortic. she is also on plaquenil Anemia stable, LATRICE not indicated. Dose meds/antibiotics for reduced GFR. Avoid fleets enema/magnesium based laxatives. Avoid nephrotoxins/NSAIDs/ iodinated contrast (unless needed emergently) Glycemic control Further work up/management as per primary team Thanks for allowing me to participate in care of your patient. Will follow patient with you. Please call if any Qs Dr Zaid Wilson Office: [phone] Chief Complaint; Shortness of breath HPI: Pt is a 71 F with hx of bronchil asthma, obesity, CKD stage 3 (baseline cr 1.8) Sjogren syndrome with renal involvement (s/p kidney biopsy aug 2016) treated with plaquenil, myfortic and low dose prednisone came to hospital with c /o SOB with cough for last few days and being managed for asthma exacerbation. renal consult for CKD management Denies chest pain, palpitation, c/o shortness of breath with wheezing although better, denies leg swelling upset about med change Physical Examination: General Appearance: Comfortable, in no acute respiratory distress, co-operative . obese Vitals reviewed and noted as below Head; Atraumatic, normocephalic ENT: no ulcers no thrush. Tongue is midline. Oropharynx: no rash or ulcers. EYES: Pupils are equal, round and reactive to light accommodation. Eye muscles and extraocular movement intact. Sclera is anicteric. Neck; supple no lymphadenopathy, no thyromegaly or bruit Lungs: normal respiratory rate/effort. Breath sounds bilateral with diffuse expiratory wheezing Heart: Normal rate. s1s2 normal. No rub or gallop. Extremities: no edema. No varicose veins Neurological: Patient is alert, awake and oriented to person, place and time. No focal deficit. Strength bilateral appropriate and equal Skin: Warm and dry. Normal turgor. No rash. Palpitation: Normal elasticity for age Abdomen: Abdomen is soft. Bowel sounds +. There is no abdominal tenderness, no guarding/rigidity no organomegaly Psych: normal insight and normal affect/mood MSK: no joint tenderness or swelling. Digits and nails normal, no deformity : kidney or bladder not palpable Labs/imaging reviewed. Past medical history, past surgical history, family history, social history, allergy reviewed and noted as below Family hx: no hx of CKD. 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 urine pro/cr 160 mg/day Objective - Vital Signs/Intake and Output Vital Signs (last 24 hours): Temp Pulse Resp BP Pulse Ox 97.3 F L 93 H 18 123/73 95 07/17/17 08:16 07/17/17 08:16 07/17/17 08:16 07/17/17 08:16 07/17/17 08:16 Intake and Output: 07/17/17 07/17/17 06:59 18:59 Intake Total 540 Balance 540 - Medications Medications: Current Medications Albuterol Sulfate (Albuterol 0.083% Inhal Rosibel (2.5 Mg/3 Ml) Ud) 2.5 mg INH RQ4 PRN PRN Reason: Wheezing Albuterol/Ipratropium (Duoneb 3 Mg/0.5 Mg (3 Ml) Ud) 3 ml INH RQ6 [facility] Last Admin: 07/17/17 07:41 Dose: 3 ml Amlodipine Besylate (Norvasc) 5 mg PO 0800 [facility] Ergocalciferol (Drisdol 50,000 Intl Units Cap) 1 cap PO Q7D [facility] Last Admin: 07/14/17 22:21 Dose: Not Given Famotidine (Pepcid) 20 mg PO BID [facility] Last Admin: 07/16/17 17:02 Dose: 20 mg Guaifenesin (Mucinex La) 600 mg PO BID [facility] Last Admin: 07/16/17 17:02 Dose: 600 mg Home Med (Home Med) 2 unit PO 0600,1900 [facility] Last Admin: 07/17/17 06:54 Dose: 2 unit Home Med (Home Med) 1 unit OU Q4 [facility] Last Admin: 07/17/17 08:40 Dose: 1 unit Hydroxychloroquine Sulfate (Plaquenil) 200 mg PO 0800,1800 [facility] Azithromycin 500 mg/ Sodium (Chloride) 250 mls @ 167 mls/hr IVPB DAILY [facility] Last Admin: 07/16/17 10:25 Dose: 167 mls/hr Methylprednisolone (Solu-Medrol) 60 mg IV Q6H [facility] Last Admin: 07/17/17 06:55 Dose: 60 mg Montelukast Sodium (Singulair) 10 mg PO HS [facility] Last Admin: 07/16/17 21:39 Dose: 10 mg Montelukast Sodium (Singulair) 5 mg PO HS [facility] Promethazine HCl/Codeine (Phenergan/Codeine Oral Syrup) 5 ml PO Q4 PRN PRN Reason: Cough Last Admin: 07/17/17 00:54 Dose: 5 ml Rosuvastatin Calcium (Crestor) 2.5 mg PO HS [facility] Last Admin: 07/16/17 21:44 Dose: Not Given Fluticasone/Salmeterol (Advair Diskus 500/50) 1 puff INH RQ12 [facility] Last Admin: 07/17/17 07:41 Dose: 1 puff Temazepam (Restoril) 15 mg PO HS PRN PRN Reason: Insomnia Last Admin: 07/16/17 21:42 Dose: 15 mg - Labs Labs: 07/17/17 07:30 07/17/17 07:30
[2017-07-17] MEDS: guaiFENesin 600 mg ER Tab PO SCH ×2 (09:26→17:21)
[2017-07-17] MEDS: Azithromycin 500 MG in Sodium Chloride 0.9% 250 ML IVPB SCH (09:27)
--- NOTE | 2017-07-17 10:35 | CP.PCM.PN ---
Subjective - Date & Time of Evaluation Date of Evaluation: 07/17/17 Time of Evaluation: 10:37 - Subjective Subjective: Pt feels better, but has not been able to walk arround today. Pt reports having a good night, but just concerned that some of her meds were not given at the exact time she takes them at home. I addressed that with the nurse this AM as to reassure the patient. Pt denies chest pain. SOB overall is less. Objective - Vital Signs/Intake and Output Vital Signs (last 24 hours): Temp Pulse Resp BP Pulse Ox 97.3 F L 93 H 18 123/73 95 07/17/17 08:16 07/17/17 08:16 07/17/17 08:16 07/17/17 08:16 07/17/17 08:16 Intake and Output: 07/17/17 07/17/17 06:59 18:59 Intake Total 540 Balance 540 - Medications Medications: Current Medications Albuterol Sulfate (Albuterol 0.083% Inhal Rosibel (2.5 Mg/3 Ml) Ud) 2.5 mg INH RQ4 PRN PRN Reason: Wheezing Albuterol/Ipratropium (Duoneb 3 Mg/0.5 Mg (3 Ml) Ud) 3 ml INH RQ6 [facility] Last Admin: 07/17/17 07:41 Dose: 3 ml Amlodipine Besylate (Norvasc) 5 mg PO 0800 [facility] Last Admin: 07/17/17 08:56 Dose: 5 mg Ergocalciferol (Drisdol 50,000 Intl Units Cap) 1 cap PO Q7D [facility] Last Admin: 07/14/17 22:21 Dose: Not Given Famotidine (Pepcid) 20 mg PO BID [facility] Last Admin: 07/17/17 09:26 Dose: 20 mg Guaifenesin (Mucinex La) 600 mg PO BID [facility] Last Admin: 07/17/17 09:26 Dose: 600 mg Home Med (Home Med) 2 unit PO 0600,1900 [facility] Last Admin: 07/17/17 06:54 Dose: 2 unit Home Med (Home Med) 1 unit OU Q4 [facility] Last Admin: 07/17/17 08:40 Dose: 1 unit Hydroxychloroquine Sulfate (Plaquenil) 200 mg PO 0800,1800 [facility] Last Admin: 07/17/17 08:57 Dose: 200 mg Azithromycin 500 mg/ Sodium (Chloride) 250 mls @ 167 mls/hr IVPB DAILY [facility] Last Admin: 07/17/17 09:27 Dose: 167 mls/hr Methylprednisolone (Solu-Medrol) 60 mg IV Q6H [facility] Last Admin: 07/17/17 06:55 Dose: 60 mg Montelukast Sodium (Singulair) 5 mg PO HS [facility] Montelukast Sodium (Singulair) 10 mg PO HS [facility] Promethazine HCl/Codeine (Phenergan/Codeine Oral Syrup) 5 ml PO Q4 PRN PRN Reason: Cough Last Admin: 07/17/17 00:54 Dose: 5 ml Fluticasone/Salmeterol (Advair Diskus 500/50) 1 puff INH RQ12 [facility] Last Admin: 07/17/17 07:41 Dose: 1 puff Temazepam (Restoril) 15 mg PO HS PRN PRN Reason: Insomnia Last Admin: 07/16/17 21:42 Dose: 15 mg - Labs Labs: 07/17/17 07:30 07/17/17 07:30 - Constitutional Appears: Well - Eye Exam Eye Exam: Normal appearance - ENT Exam ENT Exam: Mucous Membranes Moist - Respiratory Exam Respiratory Exam: Wheezes Additional comments: But overall better air exchange - Cardiovascular Exam Cardiovascular Exam: REGULAR RHYTHM, RRR, +S1, +S2. absent: JVD - Extremities Exam Extremities Exam: Normal Inspection. absent: Pedal Edema - Psychiatric Exam Psychiatric exam: Normal Affect - Skin Skin Exam: Dry, Intact Assessment and Plan - Assessment and Plan (Free Text) Assessment: 1. severe asthma exacerbation showing progress better air exchange cont nebs, and steroids 2. brochitis; cont zithromax 3. wbc up blood cultures neg and no fever likley secondary to steroids will watch closely 4. renal; stable 5. anemia noted change in hgb stool guiac monitor
[2017-07-17] MEDS: Aritificial Tears (15ml) OU SCH (20:00)
[2017-07-18] MEDS: Aritificial Tears (15ml) OU SCH ×6 (00:27→21:01)
[2017-07-18] MEDS: Albuterol-Ipratrop 3 mg / 0.5 (3 ml) UD INH SCH ×4 (01:45→19:19)
[2017-07-18] MEDS: Promethazine/Cod 6.25mg-10mg/5ml Syr UD PO PRN (06:03)
[2017-07-18] MEDS: Home Med 1 UNIT PO SCH ×2 (06:04→18:29)
[2017-07-18 07:47] LABS: HEMATOCRIT 30.3 % (34.0-47.0); MEAN CELL VOLUME 83.5 fL (81.0-99.0); MEAN CORPUSCULAR HEMOGLOBIN 28.2 pg (27.0-31.0); MEAN CORPUSCULAR HGB CONC 33.8 g/dL (33.0-37.0); MEAN PLATELET VOLUME 8.1 fL (7.2-11.7); RED CELL DISTRIBUTION WIDTH 13.9 % (11.5-14.5); WHITE BLOOD COUNT 14.5 K/uL (4.8-10.8)
[2017-07-18 08:08] LABS: CALCIUM 7.8 mg/dl (8.6-10.4); POTASSIUM 4.1 mmol/L (3.6-5.2)
[2017-07-18] MEDS: Fluticasone-Salmeterol 500-50mcg Diskus INH SCH ×2 (08:26→19:18)
[2017-07-18] MEDS: guaiFENesin 600 mg ER Tab PO SCH ×2 (09:03→18:29)
[2017-07-18] MEDS: Azithromycin 500 MG in Sodium Chloride 0.9% 250 ML IVPB SCH (09:06)
--- NOTE | 2017-07-18 15:56 | CP.PCM.PN ---
Subjective - Date & Time of Evaluation Date of Evaluation: 07/18/17 Time of Evaluation: 15:56 - Subjective Subjective: Pt states she feels bettter but has only walked to the bathroom feels as if sputum is "stock' inside. no chest pain eating ok Objective - Vital Signs/Intake and Output Vital Signs (last 24 hours): Temp Pulse Resp BP Pulse Ox 98 F 112 H 20 126/58 L 95 07/18/17 15:00 07/18/17 15:00 07/18/17 15:00 07/18/17 15:00 07/18/17 15:00 Intake and Output: 07/18/17 07/18/17 06:59 18:59 Intake Total 510 490 Balance 510 490 - Medications Medications: Current Medications Albuterol Sulfate (Albuterol 0.083% Inhal Rosibel (2.5 Mg/3 Ml) Ud) 2.5 mg INH RQ4 PRN PRN Reason: Wheezing Albuterol/Ipratropium (Duoneb 3 Mg/0.5 Mg (3 Ml) Ud) 3 ml INH RQ6 [facility] Last Admin: 07/18/17 14:39 Dose: 3 ml Amlodipine Besylate (Norvasc) 5 mg PO 0800 [facility] Last Admin: 07/18/17 07:48 Dose: 5 mg Artificial Tears (Artificial Tears) 1 ml OU Q4 [facility] Last Admin: 07/18/17 12:30 Dose: 1 drop Ergocalciferol (Drisdol 50,000 Intl Units Cap) 1 cap PO Q7D [facility] Last Admin: 07/14/17 22:21 Dose: Not Given Famotidine (Pepcid) 20 mg PO BID [facility] Last Admin: 07/18/17 09:03 Dose: 20 mg Guaifenesin (Mucinex La) 600 mg PO BID [facility] Last Admin: 07/18/17 09:03 Dose: 600 mg Home Med (Home Med) 2 unit PO 0600,1900 [facility] Last Admin: 07/18/17 06:04 Dose: 2 unit Hydroxychloroquine Sulfate (Plaquenil) 200 mg PO 0800,1800 [facility] Last Admin: 07/18/17 07:48 Dose: 200 mg Azithromycin 500 mg/ Sodium (Chloride) 250 mls @ 167 mls/hr IVPB DAILY [facility] Last Admin: 07/18/17 09:06 Dose: 167 mls/hr Methylprednisolone (Solu-Medrol) 60 mg IV Q6H [facility] Last Admin: 07/18/17 13:50 Dose: 60 mg Montelukast Sodium (Singulair) 5 mg PO HS [facility] Montelukast Sodium (Singulair) 10 mg PO HS [facility] Last Admin: 07/17/17 22:36 Dose: 10 mg Promethazine HCl/Codeine (Phenergan/Codeine Oral Syrup) 5 ml PO Q4 PRN PRN Reason: Cough Last Admin: 07/18/17 06:03 Dose: 5 ml Fluticasone/Salmeterol (Advair Diskus 500/50) 1 puff INH RQ12 [facility] Last Admin: 07/18/17 08:26 Dose: 1 puff Temazepam (Restoril) 15 mg PO HS PRN PRN Reason: Insomnia Last Admin: 07/17/17 22:42 Dose: 15 mg - Labs Labs: 07/18/17 07:36 07/18/17 07:36 - Constitutional Appears: Non-toxic, No Acute Distress - Eye Exam Eye Exam: Normal appearance - ENT Exam ENT Exam: Mucous Membranes Moist - Respiratory Exam Respiratory Exam: Prolonged Expiratory Phase, Wheezes - Cardiovascular Exam Cardiovascular Exam: REGULAR RHYTHM, RRR - GI/Abdominal Exam GI & Abdominal Exam: Soft, Normal Bowel Sounds. absent: Tenderness - Extremities Exam Extremities Exam: absent: Pedal Edema Assessment and Plan - Assessment and Plan (Free Text) Assessment: asthma: still wheezing a lot cont steroids pulmonologyst on board will check oxygen with ambulation by PT renal stable calcium; will replace
--- NOTE | 2017-07-18 17:52 | CP.PCM.PN ---
Subjective - Date & Time of Evaluation Date of Evaluation: 07/18/17 Time of Evaluation: 17:51 - Subjective Subjective: Follow up Nephrology Consultation: Assessment: Stable Acute asthma exacerbation Sjogren syndrome with renal involvement (s/p kidney biopsy aug 2016) Hypertensive Chronic Kidney Disease (I12.9) Chronic Kidney Disease (N18.3) Stage 3 without proteinuria Anemia (D64.9), HTN (I12.9) Obesity Plan No acute need for renal replacement therapy at this time. Hypertension control with meds as ordered. Monitor Input/Output, daily weights and renal function with basic metabolic panel continue with Myfortic 2 tab bid. she is on IV steroids hence home dose prednisone 5 mg can be deferred. d/c cellcept as pt already on myfortic. she is also on plaquenil Anemia stable, LATRICE not indicated. Dose meds/antibiotics for reduced GFR. Avoid fleets enema/magnesium based laxatives. Avoid nephrotoxins/NSAIDs/ iodinated contrast (unless needed emergently) Glycemic control Further work up/management as per primary team Thanks for allowing me to participate in care of your patient. Will follow patient with you. Please call if any Qs Dr Zaid Wilson Office: [phone] Chief Complaint; Shortness of breath HPI: Pt is a 71 F with hx of bronchil asthma, obesity, CKD stage 3 (baseline cr 1.8) Sjogren syndrome with renal involvement (s/p kidney biopsy aug 2016) treated with plaquenil, myfortic and low dose prednisone came to hospital with c /o SOB with cough for last few days and being managed for asthma exacerbation. renal consult for CKD management Denies chest pain, palpitation, c/o shortness of breath with wheezing although better, denies leg swelling Physical Examination: General Appearance: Comfortable, in no acute respiratory distress, co-operative . obese Vitals reviewed and noted as below Head; Atraumatic, normocephalic ENT: no ulcers no thrush. Tongue is midline. Oropharynx: no rash or ulcers. EYES: Pupils are equal, round and reactive to light accommodation. Eye muscles and extraocular movement intact. Sclera is anicteric. Neck; supple no lymphadenopathy, no thyromegaly or bruit Lungs: normal respiratory rate/effort. Breath sounds bilateral with diffuse expiratory wheezing Heart: Normal rate. s1s2 normal. No rub or gallop. Extremities: no edema. No varicose veins Neurological: Patient is alert, awake and oriented to person, place and time. No focal deficit. Strength bilateral appropriate and equal Skin: Warm and dry. Normal turgor. No rash. Palpitation: Normal elasticity for age Abdomen: Abdomen is soft. Bowel sounds +. There is no abdominal tenderness, no guarding/rigidity no organomegaly Psych: normal insight and normal affect/mood MSK: no joint tenderness or swelling. Digits and nails normal, no deformity : kidney or bladder not palpable Labs/imaging reviewed. Past medical history, past surgical history, family history, social history, allergy reviewed and noted as below Family hx: no hx of CKD. 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 urine pro/cr 160 mg/day Objective - Vital Signs/Intake and Output Vital Signs (last 24 hours): Temp Pulse Resp BP Pulse Ox 98 F 112 H 20 126/58 L 95 07/18/17 15:00 07/18/17 15:00 07/18/17 15:00 07/18/17 15:00 07/18/17 15:00 Intake and Output: 07/18/17 07/18/17 06:59 18:59 Intake Total 510 490 Balance 510 490 - Medications Medications: Current Medications Albuterol Sulfate (Albuterol 0.083% Inhal Rosibel (2.5 Mg/3 Ml) Ud) 2.5 mg INH RQ4 PRN PRN Reason: Wheezing Albuterol/Ipratropium (Duoneb 3 Mg/0.5 Mg (3 Ml) Ud) 3 ml INH RQ6 [facility] Last Admin: 07/18/17 14:39 Dose: 3 ml Amlodipine Besylate (Norvasc) 5 mg PO 0800 [facility] Last Admin: 07/18/17 07:48 Dose: 5 mg Artificial Tears (Artificial Tears) 1 ml OU Q4 [facility] Last Admin: 07/18/17 16:22 Dose: 1 drop Calcium Gluconate (Calcium Gluconate) 500 mg PO DAILY [facility] Ergocalciferol (Drisdol 50,000 Intl Units Cap) 1 cap PO Q7D [facility] Last Admin: 07/14/17 22:21 Dose: Not Given Famotidine (Pepcid) 20 mg PO BID [facility] Last Admin: 07/18/17 09:03 Dose: 20 mg Guaifenesin (Mucinex La) 600 mg PO BID [facility] Last Admin: 07/18/17 09:03 Dose: 600 mg Home Med (Home Med) 2 unit PO 0600,1900 [facility] Last Admin: 07/18/17 06:04 Dose: 2 unit Hydroxychloroquine Sulfate (Plaquenil) 200 mg PO 0800,1800 [facility] Last Admin: 07/18/17 07:48 Dose: 200 mg Azithromycin 500 mg/ Sodium (Chloride) 250 mls @ 167 mls/hr IVPB DAILY [facility] Last Admin: 07/18/17 09:06 Dose: 167 mls/hr Methylprednisolone (Solu-Medrol) 60 mg IV Q6H [facility] Last Admin: 07/18/17 13:50 Dose: 60 mg Montelukast Sodium (Singulair) 5 mg PO HS [facility] Montelukast Sodium (Singulair) 10 mg PO HS [facility] Last Admin: 07/17/17 22:36 Dose: 10 mg Promethazine HCl/Codeine (Phenergan/Codeine Oral Syrup) 5 ml PO Q4 PRN PRN Reason: Cough Last Admin: 07/18/17 06:03 Dose: 5 ml Fluticasone/Salmeterol (Advair Diskus 500/50) 1 puff INH RQ12 [facility] Last Admin: 07/18/17 08:26 Dose: 1 puff Temazepam (Restoril) 15 mg PO HS PRN PRN Reason: Insomnia Last Admin: 07/17/17 22:42 Dose: 15 mg - Labs Labs: 07/18/17 07:36 07/18/17 07:36
[2017-07-19] MEDS: Aritificial Tears (15ml) OU SCH ×6 (00:19→20:01)
[2017-07-19] MEDS: Home Med 1 UNIT PO SCH ×2 (06:11→20:00)
[2017-07-19] MEDS: Fluticasone-Salmeterol 500-50mcg Diskus INH SCH ×2 (07:18→20:12)
[2017-07-19] MEDS: Albuterol-Ipratrop 3 mg / 0.5 (3 ml) UD INH SCH ×3 (07:18→20:13)
[2017-07-19] MEDS: guaiFENesin 600 mg ER Tab PO SCH ×2 (09:52→18:17)
[2017-07-19] MEDS: Azithromycin 500 MG in Sodium Chloride 0.9% 250 ML IVPB SCH (10:54)
--- NOTE | 2017-07-19 14:54 | CP.PCM.PN ---
Subjective - Date & Time of Evaluation Date of Evaluation: 07/19/17 Time of Evaluation: 14:52 - Subjective Subjective: Follow up Nephrology Consultation: Assessment: Stable Acute asthma exacerbation Sjogren syndrome with renal involvement (s/p kidney biopsy aug 2016) Hypertensive Chronic Kidney Disease (I12.9) Chronic Kidney Disease (N18.3) Stage 3 without proteinuria Anemia (D64.9), HTN (I12.9) Obesity Plan No acute need for renal replacement therapy at this time. Hypertension control with meds as ordered. Monitor Input/Output, daily weights and renal function with basic metabolic panel continue with Myfortic 2 tab bid. she is on IV steroids hence home dose prednisone 5 mg can be deferred. d/c cellcept as pt already on myfortic. she is also on plaquenil Dose meds/antibiotics for reduced GFR. Avoid fleets enema/magnesium based laxatives. Avoid nephrotoxins/NSAIDs/ iodinated contrast (unless needed emergently) Glycemic control Further work up/management as per primary team Thanks for allowing me to participate in care of your patient. Will follow patient with you. Please call if any Qs Dr Zaid Wilson Office: [phone] Chief Complaint; Shortness of breath HPI: Pt is a 71 F with hx of bronchil asthma, obesity, CKD stage 3 (baseline cr 1.8) Sjogren syndrome with renal involvement (s/p kidney biopsy aug 2016) treated with plaquenil, myfortic and low dose prednisone came to hospital with c /o SOB with cough for last few days and being managed for asthma exacerbation. renal consult for CKD management Denies chest pain, palpitation, says improved shortness of breath, denies leg swelling. wants to go home Physical Examination: General Appearance: Comfortable, in no acute respiratory distress, co-operative . obese Vitals reviewed and noted as below Head; Atraumatic, normocephalic ENT: no ulcers no thrush. Tongue is midline. Oropharynx: no rash or ulcers. EYES: Pupils are equal, round and reactive to light accommodation. Eye muscles and extraocular movement intact. Sclera is anicteric. Neck; supple no lymphadenopathy, no thyromegaly or bruit Lungs: normal respiratory rate/effort. Breath sounds bilateral with expiratory wheezing Heart: Normal rate. s1s2 normal. No rub or gallop. Extremities: no edema. No varicose veins Neurological: Patient is alert, awake and oriented to person, place and time. No focal deficit. Strength bilateral appropriate and equal Skin: Warm and dry. Normal turgor. No rash. Palpitation: Normal elasticity for age Abdomen: Abdomen is soft. Bowel sounds +. There is no abdominal tenderness, no guarding/rigidity no organomegaly Psych: normal insight and normal affect/mood MSK: no joint tenderness or swelling. Digits and nails normal, no deformity : kidney or bladder not palpable Labs/imaging reviewed. Past medical history, past surgical history, family history, social history, allergy reviewed and noted as below Family hx: no hx of CKD. 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 urine pro/cr 160 mg/day Objective - Vital Signs/Intake and Output Vital Signs (last 24 hours): Temp Pulse Resp BP Pulse Ox 98.4 F 104 H 18 130/79 96 07/19/17 08:00 07/19/17 13:23 07/19/17 08:00 07/19/17 08:00 07/19/17 13:23 Intake and Output: 07/19/17 07/19/17 06:59 18:59 Intake Total 150 Balance 150 - Medications Medications: Current Medications Albuterol Sulfate (Albuterol 0.083% Inhal Rosibel (2.5 Mg/3 Ml) Ud) 2.5 mg INH RQ4 PRN PRN Reason: Wheezing Albuterol/Ipratropium (Duoneb 3 Mg/0.5 Mg (3 Ml) Ud) 3 ml INH RQ6 [facility] Last Admin: 07/19/17 13:59 Dose: 3 ml Amlodipine Besylate (Norvasc) 5 mg PO 0800 [facility] Last Admin: 07/19/17 08:43 Dose: 5 mg Artificial Tears (Artificial Tears) 1 ml OU Q4 [facility] Last Admin: 07/19/17 12:25 Dose: 1 drop Calcium Carbonate (Oscal) 500 mg PO DAILY [facility] Ergocalciferol (Drisdol 50,000 Intl Units Cap) 1 cap PO Q7D [facility] Last Admin: 07/14/17 22:21 Dose: Not Given Famotidine (Pepcid) 20 mg PO BID [facility] Last Admin: 07/19/17 09:52 Dose: 20 mg Guaifenesin (Mucinex La) 600 mg PO BID [facility] Last Admin: 07/19/17 09:52 Dose: 600 mg Home Med (Home Med) 2 unit PO 0600,1900 [facility] Last Admin: 07/19/17 06:11 Dose: 2 unit Hydroxychloroquine Sulfate (Plaquenil) 200 mg PO 0800,1800 [facility] Last Admin: 07/19/17 08:43 Dose: 200 mg Azithromycin 500 mg/ Sodium (Chloride) 250 mls @ 167 mls/hr IVPB DAILY [facility] Last Admin: 07/19/17 10:54 Dose: 167 mls/hr Methylprednisolone (Solu-Medrol) 60 mg IV Q6H [facility] Last Admin: 07/19/17 12:24 Dose: 60 mg Montelukast Sodium (Singulair) 5 mg PO HS [facility] Last Admin: 07/18/17 22:23 Dose: Not Given Montelukast Sodium (Singulair) 10 mg PO HS [facility] Last Admin: 07/18/17 21:01 Dose: 10 mg Promethazine HCl/Codeine (Phenergan/Codeine Oral Syrup) 5 ml PO Q4 PRN PRN Reason: Cough Last Admin: 07/18/17 06:03 Dose: 5 ml Fluticasone/Salmeterol (Advair Diskus 500/50) 1 puff INH RQ12 [facility] Last Admin: 07/19/17 07:18 Dose: 1 puff Temazepam (Restoril) 15 mg PO HS PRN PRN Reason: Insomnia Last Admin: 07/18/17 22:15 Dose: 15 mg - Labs Labs: 07/18/17 07:36 07/18/17 07:36
[2017-07-19] MEDS: Promethazine/Cod 6.25mg-10mg/5ml Syr UD PO PRN ×2 (16:34→21:58)
--- NOTE | 2017-07-19 17:45 | CP.PCM.PN ---
Subjective - Date & Time of Evaluation Date of Evaluation: 07/19/17 Time of Evaluation: 17:47 - Subjective Subjective: PT reports she is 50% back to base line. However she continues to cough and wheeze. PT ambulated a little today but was feeling dizzy , unstable on her feet per RN. PT's family is at [facility]. She called her son earlier crying because was told she needs to stay in the hospital. She is ok now but wants to go home. Objective - Vital Signs/Intake and Output Vital Signs (last 24 hours): Temp Pulse Resp BP Pulse Ox 97.6 F 101 H 20 134/79 96 07/19/17 15:57 07/19/17 15:57 07/19/17 15:57 07/19/17 15:57 07/19/17 15:57 Intake and Output: 07/19/17 07/19/17 06:59 18:59 Intake Total 150 Balance 150 - Medications Medications: Current Medications Albuterol Sulfate (Albuterol 0.083% Inhal Rosibel (2.5 Mg/3 Ml) Ud) 2.5 mg INH RQ4 PRN PRN Reason: Wheezing Albuterol/Ipratropium (Duoneb 3 Mg/0.5 Mg (3 Ml) Ud) 3 ml INH RQ6 [facility] Last Admin: 07/19/17 13:59 Dose: 3 ml Amlodipine Besylate (Norvasc) 5 mg PO 0800 [facility] Last Admin: 07/19/17 08:43 Dose: 5 mg Artificial Tears (Artificial Tears) 1 ml OU Q4 [facility] Last Admin: 07/19/17 16:34 Dose: 1 drop Calcium Carbonate (Oscal) 500 mg PO DAILY [facility] Ergocalciferol (Drisdol 50,000 Intl Units Cap) 1 cap PO Q7D [facility] Last Admin: 07/14/17 22:21 Dose: Not Given Famotidine (Pepcid) 20 mg PO BID [facility] Last Admin: 07/19/17 09:52 Dose: 20 mg Guaifenesin (Mucinex La) 600 mg PO BID [facility] Last Admin: 07/19/17 09:52 Dose: 600 mg Home Med (Home Med) 2 unit PO 0600,1900 [facility] Last Admin: 07/19/17 06:11 Dose: 2 unit Hydroxychloroquine Sulfate (Plaquenil) 200 mg PO 0800,1800 [facility] Last Admin: 07/19/17 08:43 Dose: 200 mg Azithromycin 500 mg/ Sodium (Chloride) 250 mls @ 167 mls/hr IVPB DAILY [facility] Last Admin: 07/19/17 10:54 Dose: 167 mls/hr Methylprednisolone (Solu-Medrol) 60 mg IV Q6H [facility] Last Admin: 07/19/17 12:24 Dose: 60 mg Montelukast Sodium (Singulair) 5 mg PO HS [facility] Last Admin: 07/18/17 22:23 Dose: Not Given Montelukast Sodium (Singulair) 10 mg PO HS [facility] Last Admin: 07/18/17 21:01 Dose: 10 mg Promethazine HCl/Codeine (Phenergan/Codeine Oral Syrup) 5 ml PO Q4 PRN PRN Reason: Cough Last Admin: 07/19/17 16:34 Dose: 5 ml Fluticasone/Salmeterol (Advair Diskus 500/50) 1 puff INH RQ12 [facility] Last Admin: 07/19/17 07:18 Dose: 1 puff Temazepam (Restoril) 15 mg PO HS PRN PRN Reason: Insomnia Last Admin: 07/18/17 22:15 Dose: 15 mg - Labs Labs: 07/18/17 07:36 07/18/17 07:36 - Constitutional Appears: Well - Head Exam Head Exam: NORMAL INSPECTION - Eye Exam Eye Exam: EOMI - ENT Exam ENT Exam: Mucous Membranes Moist - Respiratory Exam Respiratory Exam: Wheezes (pt continues to have wheezing diffusely in addition to prolonged expiratory phase.) Assessment and Plan - Assessment and Plan (Free Text) Assessment: Status pt continues to wheeze diffusely she states she is 50% back ot baseline but states she always has some degree of wheezing. she has been on high dose steroids and nebs but progress is very slow. Discussed situation with son and pt at bed side. communicated with DR. Snyder today for further recommendation and he will see her tonight.
--- NOTE | 2017-07-19 19:56 | CP.PCM.PN ---
Subjective - Date & Time of Evaluation Date of Evaluation: 07/19/17 Time of Evaluation: 19:52 - Subjective Subjective: better overall but still wheezing, less cough, and sob Objective - Vital Signs/Intake and Output Vital Signs (last 24 hours): Temp Pulse Resp BP Pulse Ox 97.6 F 101 H 20 134/79 96 07/19/17 15:57 07/19/17 15:57 07/19/17 15:57 07/19/17 15:57 07/19/17 15:57 - Medications Medications: Current Medications Albuterol/Ipratropium (Duoneb 3 Mg/0.5 Mg (3 Ml) Ud) 3 ml INH RQ6 [facility] Last Admin: 07/19/17 13:59 Dose: 3 ml Amlodipine Besylate (Norvasc) 5 mg PO 0800 [facility] Last Admin: 07/19/17 08:43 Dose: 5 mg Artificial Tears (Artificial Tears) 1 ml OU Q4 [facility] Last Admin: 07/19/17 16:34 Dose: 1 drop Calcium Carbonate (Oscal) 500 mg PO DAILY [facility] Ergocalciferol (Drisdol 50,000 Intl Units Cap) 1 cap PO Q7D [facility] Last Admin: 07/14/17 22:21 Dose: Not Given Famotidine (Pepcid) 20 mg PO BID [facility] Last Admin: 07/19/17 18:17 Dose: 20 mg Guaifenesin (Mucinex La) 600 mg PO BID [facility] Last Admin: 07/19/17 18:17 Dose: 600 mg Home Med (Home Med) 2 unit PO 0600,1900 [facility] Last Admin: 07/19/17 06:11 Dose: 2 unit Hydroxychloroquine Sulfate (Plaquenil) 200 mg PO 0800,1800 [facility] Last Admin: 07/19/17 18:17 Dose: 200 mg Azithromycin 500 mg/ Sodium (Chloride) 250 mls @ 167 mls/hr IVPB DAILY [facility] Last Admin: 07/19/17 10:54 Dose: 167 mls/hr Methylprednisolone (Solu-Medrol) 60 mg IV Q6H [facility] Last Admin: 07/19/17 12:24 Dose: 60 mg Montelukast Sodium (Singulair) 5 mg PO HS [facility] Last Admin: 07/18/17 22:23 Dose: Not Given Montelukast Sodium (Singulair) 10 mg PO HS [facility] Last Admin: 07/18/17 21:01 Dose: 10 mg Promethazine HCl/Codeine (Phenergan/Codeine Oral Syrup) 5 ml PO Q4 PRN PRN Reason: Cough Last Admin: 07/19/17 16:34 Dose: 5 ml Fluticasone/Salmeterol (Advair Diskus 500/50) 1 puff INH RQ12 [facility] Last Admin: 07/19/17 07:18 Dose: 1 puff Temazepam (Restoril) 15 mg PO HS PRN PRN Reason: Insomnia Last Admin: 07/18/17 22:15 Dose: 15 mg - Labs Labs: 07/18/17 07:36 07/18/17 07:36 - Constitutional Appears: No Acute Distress, Chronically Ill - Head Exam Head Exam: ATRAUMATIC, NORMOCEPHALIC - Eye Exam Eye Exam: Normal appearance - ENT Exam ENT Exam: Mucous Membranes Moist - Respiratory Exam Respiratory Exam: Decreased Breath Sounds, Prolonged Expiratory Phase, Wheezes - Cardiovascular Exam Cardiovascular Exam: REGULAR RHYTHM, +S1, +S2 - GI/Abdominal Exam GI & Abdominal Exam: Normal Bowel Sounds - Rectal Exam Rectal Exam: Deferred - Neurological Exam Neurological Exam: Alert, Awake - Psychiatric Exam Psychiatric exam: Normal Affect, Normal Mood - Skin Skin Exam: Intact Assessment and Plan (1) Status asthmaticus Status: Acute (2) Sjoegren syndrome Status: Chronic (3) Chronic renal insufficiency, stage III (moderate) Status: Chronic
[2017-07-20] MEDS: Albuterol-Ipratrop 3 mg / 0.5 (3 ml) UD INH SCH ×4 (01:03→19:13)
[2017-07-20] MEDS: Aritificial Tears (15ml) OU SCH ×6 (01:43→20:56)
[2017-07-20] MEDS: Home Med 1 UNIT PO SCH ×2 (06:17→20:56)
[2017-07-20] MEDS: Fluticasone-Salmeterol 500-50mcg Diskus INH SCH (07:36)
[2017-07-20] MEDS: Tiotropium 18 mcg Cap For Inhalation INH SCH (07:37)
[2017-07-20] MEDS: guaiFENesin 600 mg ER Tab PO SCH ×2 (10:44→17:28)
[2017-07-20] MEDS: Azithromycin 500 MG in Sodium Chloride 0.9% 250 ML IVPB SCH (10:54)
--- NOTE | 2017-07-20 14:31 | CP.PCM.PN ---
Subjective - Date & Time of Evaluation Date of Evaluation: 07/20/17 Time of Evaluation: 14:28 - Subjective Subjective: Follow up Nephrology Consultation: Assessment: Stable Acute asthma exacerbation Sjogren syndrome with renal involvement (s/p kidney biopsy aug 2016) Hypertensive Chronic Kidney Disease (I12.9) Chronic Kidney Disease (N18.3) Stage 3 without proteinuria Anemia (D64.9), HTN (I12.9) Obesity Plan No acute need for renal replacement therapy at this time. Hypertension control with meds as ordered. Monitor Input/Output, daily weights and renal function with basic metabolic panel continue with Myfortic 2 tab bid. she is on IV steroids hence home dose prednisone 5 mg can be deferred. d/c cellcept as pt already on myfortic. she is also on plaquenil Dose meds/antibiotics for reduced GFR. Avoid fleets enema/magnesium based laxatives. Avoid nephrotoxins/NSAIDs/ iodinated contrast (unless needed emergently) Glycemic control Further work up/management as per primary team Thanks for allowing me to participate in care of your patient. Will follow patient with you. Please call if any Qs Dr Zaid Wilson Office: [phone] Chief Complaint; Shortness of breath HPI: Pt is a 71 F with hx of bronchil asthma, obesity, CKD stage 3 (baseline cr 1.8) Sjogren syndrome with renal involvement (s/p kidney biopsy aug 2016) treated with plaquenil, myfortic and low dose prednisone came to hospital with c /o SOB with cough for last few days and being managed for asthma exacerbation. renal consult for CKD management Denies chest pain, palpitation, says improved shortness of breath, denies leg swelling. wants to go home Physical Examination: General Appearance: Comfortable, in no acute respiratory distress, co-operative . obese Vitals reviewed and noted as below Head; Atraumatic, normocephalic ENT: no ulcers no thrush. Tongue is midline. Oropharynx: no rash or ulcers. EYES: Pupils are equal, round and reactive to light accommodation. Eye muscles and extraocular movement intact. Sclera is anicteric. Neck; supple no lymphadenopathy, no thyromegaly or bruit Lungs: normal respiratory rate/effort. Breath sounds bilateral with expiratory wheezing Heart: Normal rate. s1s2 normal. No rub or gallop. Extremities: no edema. No varicose veins Neurological: Patient is alert, awake and oriented to person, place and time. No focal deficit. Strength bilateral appropriate and equal Skin: Warm and dry. Normal turgor. No rash. Palpitation: Normal elasticity for age Abdomen: Abdomen is soft. Bowel sounds +. There is no abdominal tenderness, no guarding/rigidity no organomegaly Psych: normal insight and normal affect/mood MSK: no joint tenderness or swelling. Digits and nails normal, no deformity : kidney or bladder not palpable Labs/imaging reviewed. Past medical history, past surgical history, family history, social history, allergy reviewed and noted as below Family hx: no hx of CKD. 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 urine pro/cr 160 mg/day Objective - Vital Signs/Intake and Output Vital Signs (last 24 hours): Temp Pulse Resp BP Pulse Ox 97.6 F 91 H 18 126/79 95 07/20/17 07:53 07/20/17 07:53 07/20/17 07:53 07/20/17 07:53 07/20/17 07:53 Intake and Output: 07/20/17 07/20/17 06:59 18:59 Intake Total 380 Balance 380 - Medications Medications: Current Medications Albuterol/Ipratropium (Duoneb 3 Mg/0.5 Mg (3 Ml) Ud) 3 ml INH RQ6 [facility] Last Admin: 07/20/17 12:45 Dose: 3 ml Amlodipine Besylate (Norvasc) 5 mg PO 0800 [facility] Last Admin: 07/20/17 08:30 Dose: 5 mg Artificial Tears (Artificial Tears) 1 ml OU Q4 [facility] Last Admin: 07/20/17 11:58 Dose: 1 drop Calcium Carbonate (Oscal) 500 mg PO DAILY [facility] Last Admin: 07/20/17 10:53 Dose: 500 mg Ergocalciferol (Drisdol 50,000 Intl Units Cap) 1 cap PO Q7D [facility] Last Admin: 07/14/17 22:21 Dose: Not Given Famotidine (Pepcid) 20 mg PO BID [facility] Last Admin: 07/20/17 10:46 Dose: 20 mg Guaifenesin (Mucinex La) 600 mg PO BID [facility] Last Admin: 07/20/17 10:44 Dose: 600 mg Home Med (Home Med) 2 unit PO 0600,1900 [facility] Last Admin: 07/20/17 06:17 Dose: 2 unit Hydroxychloroquine Sulfate (Plaquenil) 200 mg PO 0800,1800 [facility] Last Admin: 07/20/17 08:30 Dose: 200 mg Azithromycin 500 mg/ Sodium (Chloride) 250 mls @ 167 mls/hr IVPB DAILY [facility] Last Admin: 07/20/17 10:54 Dose: 167 mls/hr Methylprednisolone (Solu-Medrol) 60 mg IV Q6H [facility] Last Admin: 07/20/17 13:08 Dose: 60 mg Montelukast Sodium (Singulair) 5 mg PO HS [facility] Last Admin: 07/18/17 22:23 Dose: Not Given Montelukast Sodium (Singulair) 10 mg PO HS [facility] Last Admin: 07/19/17 21:58 Dose: 10 mg Promethazine HCl/Codeine (Phenergan/Codeine Oral Syrup) 5 ml PO Q4 PRN PRN Reason: Cough Last Admin: 07/19/17 21:58 Dose: 5 ml Roflumilast (Daliresp) 500 mcg PO DAILY [facility] Last Admin: 07/20/17 10:45 Dose: 500 mcg Fluticasone/Salmeterol (Advair Diskus 500/50) 1 puff INH RQ12 [facility] Last Admin: 07/20/17 07:36 Dose: 1 puff Temazepam (Restoril) 15 mg PO HS PRN PRN Reason: Insomnia Last Admin: 07/19/17 21:58 Dose: 15 mg Tiotropium [place] (Spiriva) 18 mcg INH RQ24 [facility] Last Admin: 07/20/17 07:37 Dose: Not Given - Labs Labs: 07/18/17 07:36 07/18/17 07:36
--- NOTE | 2017-07-20 15:11 | CP.PCM.PN ---
Subjective - Date & Time of Evaluation Date of Evaluation: 07/20/17 Time of Evaluation: 15:11 - Subjective Subjective: PT feels a little better but get sob with walking or when she coughs apreciate pulmonary input no chest pain no fever Objective - Vital Signs/Intake and Output Vital Signs (last 24 hours): Temp Pulse Resp BP Pulse Ox 97.6 F 91 H 18 126/79 95 07/20/17 07:53 07/20/17 07:53 07/20/17 07:53 07/20/17 07:53 07/20/17 07:53 Intake and Output: 07/20/17 07/20/17 06:59 18:59 Intake Total 380 Balance 380 - Medications Medications: Current Medications Albuterol/Ipratropium (Duoneb 3 Mg/0.5 Mg (3 Ml) Ud) 3 ml INH RQ6 [facility] Last Admin: 07/20/17 12:45 Dose: 3 ml Amlodipine Besylate (Norvasc) 5 mg PO 0800 [facility] Last Admin: 07/20/17 08:30 Dose: 5 mg Artificial Tears (Artificial Tears) 1 ml OU Q4 [facility] Last Admin: 07/20/17 11:58 Dose: 1 drop Calcium Carbonate (Oscal) 500 mg PO DAILY [facility] Last Admin: 07/20/17 10:53 Dose: 500 mg Ergocalciferol (Drisdol 50,000 Intl Units Cap) 1 cap PO Q7D [facility] Last Admin: 07/14/17 22:21 Dose: Not Given Famotidine (Pepcid) 20 mg PO BID [facility] Last Admin: 07/20/17 10:46 Dose: 20 mg Guaifenesin (Mucinex La) 600 mg PO BID [facility] Last Admin: 07/20/17 10:44 Dose: 600 mg Home Med (Home Med) 2 unit PO 0600,1900 [facility] Last Admin: 07/20/17 06:17 Dose: 2 unit Hydroxychloroquine Sulfate (Plaquenil) 200 mg PO 0800,1800 [facility] Last Admin: 07/20/17 08:30 Dose: 200 mg Azithromycin 500 mg/ Sodium (Chloride) 250 mls @ 167 mls/hr IVPB DAILY [facility] Last Admin: 07/20/17 10:54 Dose: 167 mls/hr Methylprednisolone (Solu-Medrol) 60 mg IV Q6H [facility] Last Admin: 07/20/17 13:08 Dose: 60 mg Montelukast Sodium (Singulair) 5 mg PO HS [facility] Last Admin: 07/18/17 22:23 Dose: Not Given Montelukast Sodium (Singulair) 10 mg PO HS [facility] Last Admin: 07/19/17 21:58 Dose: 10 mg Promethazine HCl/Codeine (Phenergan/Codeine Oral Syrup) 5 ml PO Q4 PRN PRN Reason: Cough Last Admin: 07/19/17 21:58 Dose: 5 ml Roflumilast (Daliresp) 500 mcg PO DAILY [facility] Last Admin: 07/20/17 10:45 Dose: 500 mcg Fluticasone/Salmeterol (Advair Diskus 500/50) 1 puff INH RQ12 [facility] Last Admin: 07/20/17 07:36 Dose: 1 puff Temazepam (Restoril) 15 mg PO HS PRN PRN Reason: Insomnia Last Admin: 07/19/17 21:58 Dose: 15 mg Tiotropium [place] (Spiriva) 18 mcg INH RQ24 [facility] Last Admin: 07/20/17 07:37 Dose: Not Given - Labs Labs: 07/18/17 07:36 07/18/17 07:36 - Constitutional Appears: Well, Non-toxic - Eye Exam Eye Exam: Normal appearance - ENT Exam ENT Exam: Mucous Membranes Moist - Respiratory Exam Respiratory Exam: Prolonged Expiratory Phase, Wheezes, NORMAL BREATHING PATTERN - Cardiovascular Exam Cardiovascular Exam: REGULAR RHYTHM, RRR, +S1, +S2 - GI/Abdominal Exam GI & Abdominal Exam: Normal Bowel Sounds - Extremities Exam Extremities Exam: absent: Pedal Edema Assessment and Plan - Assessment and Plan (Free Text) Assessment: !. severe and persistent asthma exacerbation cont nebs and steroids pulmonary on board has improved since admission but still sob with activities and wheezing Sjongrens cont meds renal stable
[2017-07-20 16:03] VITALS: RESP 20
--- NOTE | 2017-07-20 17:58 | CP.PCM.PN ---
Subjective - Date & Time of Evaluation Date of Evaluation: 07/20/17 Time of Evaluation: 17:53 - Subjective Subjective: clinically improved with meds, decreased cough and wheeze Objective - Vital Signs/Intake and Output Vital Signs (last 24 hours): Temp Pulse Resp BP Pulse Ox 98.0 F 107 H 20 134/77 94 L 07/20/17 16:02 07/20/17 16:02 07/20/17 16:02 07/20/17 16:02 07/20/17 16:02 Intake and Output: 07/20/17 07/20/17 06:59 18:59 Intake Total 380 Balance 380 - Medications Medications: Current Medications Albuterol/Ipratropium (Duoneb 3 Mg/0.5 Mg (3 Ml) Ud) 3 ml INH RQ6 [facility] Last Admin: 07/20/17 12:45 Dose: 3 ml Amlodipine Besylate (Norvasc) 5 mg PO 0800 [facility] Last Admin: 07/20/17 08:30 Dose: 5 mg Artificial Tears (Artificial Tears) 1 ml OU Q4 [facility] Last Admin: 07/20/17 17:28 Dose: 1 drop Azithromycin (Zithromax) 500 mg PO DAILY [facility] Calcium Carbonate (Oscal) 500 mg PO DAILY [facility] Last Admin: 07/20/17 10:53 Dose: 500 mg Ergocalciferol (Drisdol 50,000 Intl Units Cap) 1 cap PO Q7D [facility] Last Admin: 07/14/17 22:21 Dose: Not Given Famotidine (Pepcid) 20 mg PO BID [facility] Last Admin: 07/20/17 17:29 Dose: 20 mg Guaifenesin (Mucinex La) 600 mg PO BID [facility] Last Admin: 07/20/17 17:28 Dose: 600 mg Home Med (Home Med) 2 unit PO 0600,1900 [facility] Last Admin: 07/20/17 06:17 Dose: 2 unit Hydroxychloroquine Sulfate (Plaquenil) 200 mg PO 0800,1800 [facility] Last Admin: 07/20/17 17:29 Dose: 200 mg Methylprednisolone (Solu-Medrol) 60 mg IV Q6H [facility] Last Admin: 07/20/17 13:08 Dose: 60 mg Montelukast Sodium (Singulair) 5 mg PO HS [facility] Last Admin: 07/18/17 22:23 Dose: Not Given Montelukast Sodium (Singulair) 10 mg PO HS [facility] Last Admin: 07/19/17 21:58 Dose: 10 mg Promethazine HCl/Codeine (Phenergan/Codeine Oral Syrup) 5 ml PO Q4 PRN PRN Reason: Cough Last Admin: 07/19/17 21:58 Dose: 5 ml Roflumilast (Daliresp) 500 mcg PO DAILY [facility] Last Admin: 07/20/17 10:45 Dose: 500 mcg Fluticasone/Salmeterol (Advair Diskus 500/50) 1 puff INH RQ12 [facility] Last Admin: 07/20/17 07:36 Dose: 1 puff Temazepam (Restoril) 15 mg PO HS PRN PRN Reason: Insomnia Last Admin: 07/19/17 21:58 Dose: 15 mg Tiotropium [place] (Spiriva) 18 mcg INH RQ24 [facility] Last Admin: 07/20/17 07:37 Dose: Not Given - Labs Labs: 07/18/17 07:36 07/18/17 07:36 - Constitutional Appears: Chronically Ill - Head Exam Head Exam: ATRAUMATIC, NORMOCEPHALIC - Eye Exam Eye Exam: Normal appearance - ENT Exam ENT Exam: Mucous Membranes Moist - Respiratory Exam Respiratory Exam: Decreased Breath Sounds, Wheezes - Cardiovascular Exam Cardiovascular Exam: REGULAR RHYTHM, +S1, +S2 - GI/Abdominal Exam GI & Abdominal Exam: Normal Bowel Sounds - Rectal Exam Rectal Exam: Deferred - Neurological Exam Neurological Exam: Alert, Awake - Psychiatric Exam Psychiatric exam: Normal Affect, Normal Mood - Skin Skin Exam: Intact Assessment and Plan (1) Status asthmaticus Status: Acute (2) Sjoegren syndrome Status: Chronic (3) Chronic renal insufficiency, stage III (moderate) Status: Chronic
[2017-07-21] MEDS: Aritificial Tears (15ml) OU SCH ×6 (01:04→21:25)
[2017-07-21] MEDS: Albuterol-Ipratrop 3 mg / 0.5 (3 ml) UD INH SCH ×4 (01:40→19:45)
[2017-07-21] MEDS: Home Med 1 UNIT PO SCH ×2 (06:02→18:03)
[2017-07-21] MEDS: Fluticasone-Salmeterol 500-50mcg Diskus INH SCH ×2 (07:40→19:45)
[2017-07-21] MEDS: Tiotropium 18 mcg Cap For Inhalation INH SCH (07:40)
[2017-07-21] MEDS: Promethazine/Cod 6.25mg-10mg/5ml Syr UD PO PRN ×2 (08:22→17:54)
[2017-07-21] MEDS ORDERED: Azithromycin 500 MG in Sodium Chloride 0.9% 250 ML IVPB SCH (10:00)
[2017-07-21] MEDS: guaiFENesin 600 mg ER Tab PO SCH ×2 (11:04→17:54)
--- NOTE | 2017-07-21 15:08 | CP.PCM.PN ---
Subjective - Date & Time of Evaluation Date of Evaluation: 07/21/17 Time of Evaluation: 15:33 - Subjective Subjective: Pt was seen by pulmonary yesterday Pt reports feeling better, I personally saw her walk back from the bathroom comfortable no chest pain no sob Objective - Vital Signs/Intake and Output Vital Signs (last 24 hours): Temp Pulse Resp BP Pulse Ox 98 F 89 20 113/69 96 07/21/17 08:00 07/21/17 08:00 07/21/17 08:00 07/21/17 08:00 07/21/17 08:00 Intake and Output: 07/21/17 07/21/17 06:59 18:59 Intake Total 11293 Balance 55986 - Medications Medications: Current Medications Albuterol/Ipratropium (Duoneb 3 Mg/0.5 Mg (3 Ml) Ud) 3 ml INH RQ6 [facility] Last Admin: 07/21/17 13:57 Dose: 3 ml Amlodipine Besylate (Norvasc) 5 mg PO 0800 [facility] Last Admin: 07/21/17 08:13 Dose: 5 mg Artificial Tears (Artificial Tears) 1 ml OU Q4 [facility] Last Admin: 07/21/17 12:12 Dose: 1 drop Azithromycin (Zithromax) 500 mg PO DAILY [facility] Last Admin: 07/21/17 11:04 Dose: 500 mg Calcium Carbonate (Oscal) 500 mg PO DAILY [facility] Last Admin: 07/21/17 11:05 Dose: 500 mg Ergocalciferol (Drisdol 50,000 Intl Units Cap) 1 cap PO Q7D [facility] Last Admin: 07/14/17 22:21 Dose: Not Given Famotidine (Pepcid) 20 mg PO BID [facility] Last Admin: 07/21/17 11:05 Dose: 20 mg Guaifenesin (Mucinex La) 600 mg PO BID [facility] Last Admin: 07/21/17 11:04 Dose: 600 mg Home Med (Home Med) 2 unit PO 0600,1900 [facility] Last Admin: 07/21/17 06:02 Dose: 2 unit Hydroxychloroquine Sulfate (Plaquenil) 200 mg PO 0800,1800 [facility] Methylprednisolone (Solu-Medrol) 60 mg IV Q6H [facility] Last Admin: 07/21/17 12:12 Dose: 60 mg Montelukast Sodium (Singulair) 5 mg PO HS [facility] Last Admin: 12/12/17 22:36 Dose: 5 mg Promethazine HCl/Codeine (Phenergan/Codeine Oral Syrup) 5 ml PO Q4 PRN PRN Reason: Cough Last Admin: 07/21/17 08:22 Dose: 5 ml Roflumilast (Daliresp) 500 mcg PO DAILY [facility] Last Admin: 07/21/17 11:04 Dose: 500 mcg Fluticasone/Salmeterol (Advair Diskus 500/50) 1 puff INH RQ12 [facility] Last Admin: 07/21/17 07:40 Dose: 1 puff Temazepam (Restoril) 15 mg PO HS PRN PRN Reason: Insomnia Last Admin: 07/20/17 22:29 Dose: 15 mg Tiotropium [place] (Spiriva) 18 mcg INH RQ24 [facility] Last Admin: 07/21/17 07:40 Dose: 18 mcg - Labs Labs: 07/18/17 07:36 07/18/17 07:36 - Constitutional Appears: Non-toxic - Eye Exam Eye Exam: Normal appearance - ENT Exam ENT Exam: Mucous Membranes Moist - Respiratory Exam Respiratory Exam: Wheezes (much less wheezing). absent: Respiratory Distress - GI/Abdominal Exam GI & Abdominal Exam: Soft, Normal Bowel Sounds - Extremities Exam Extremities Exam: Full ROM. absent: Pedal Edema Assessment and Plan - Assessment and Plan (Free Text) Assessment: asthma exacerbation improving better today anticipate being able to dc tomorrow, if continues to improve;. will need medrol dose at home
--- NOTE | 2017-07-21 15:16 | CP.PCM.PN ---
Subjective - Date & Time of Evaluation Date of Evaluation: 07/21/17 Time of Evaluation: 15:16 - Subjective Subjective: Follow up Nephrology Consultation: Assessment: Stable Acute asthma exacerbation Sjogren syndrome with renal involvement (s/p kidney biopsy aug 2016) Hypertensive Chronic Kidney Disease (I12.9) Chronic Kidney Disease (N18.3) Stage 3 without proteinuria Anemia (D64.9), HTN (I12.9) Obesity Plan No acute need for renal replacement therapy at this time. Hypertension control with meds as ordered. Monitor Input/Output, daily weights and renal function with basic metabolic panel continue with Myfortic 2 tab bid. she is on IV steroids hence home dose prednisone 5 mg can be deferred. d/c cellcept as pt already on myfortic. she is also on plaquenil Dose meds/antibiotics for reduced GFR. Avoid fleets enema/magnesium based laxatives. Avoid nephrotoxins/NSAIDs/ iodinated contrast (unless needed emergently) Glycemic control Further work up/management as per primary team Thanks for allowing me to participate in care of your patient. Will follow patient with you. Please call if any Qs Dr Zaid Wilson Office: [phone] Chief Complaint; none today HPI: Pt is a 71 F with hx of bronchil asthma, obesity, CKD stage 3 (baseline cr 1.8) Sjogren syndrome with renal involvement (s/p kidney biopsy aug 2016) treated with plaquenil, myfortic and low dose prednisone came to hospital with c /o SOB with cough for last few days and being managed for asthma exacerbation. renal consult for CKD management Denies chest pain, palpitation, says improved shortness of breath, denies leg swelling. wants to go home Physical Examination: General Appearance: Comfortable, in no acute respiratory distress, co-operative . obese Vitals reviewed and noted as below Head; Atraumatic, normocephalic ENT: no ulcers no thrush. Tongue is midline. Oropharynx: no rash or ulcers. EYES: Pupils are equal, round and reactive to light accommodation. Eye muscles and extraocular movement intact. Sclera is anicteric. Neck; supple no lymphadenopathy, no thyromegaly or bruit Lungs: normal respiratory rate/effort. Breath sounds bilateral clearer today. Heart: Normal rate. s1s2 normal. No rub or gallop. Extremities: no edema. No varicose veins Neurological: Patient is alert, awake and oriented to person, place and time. No focal deficit. Strength bilateral appropriate and equal Skin: Warm and dry. Normal turgor. No rash. Palpitation: Normal elasticity for age Abdomen: Abdomen is soft. Bowel sounds +. There is no abdominal tenderness, no guarding/rigidity no organomegaly Psych: normal insight and normal affect/mood MSK: no joint tenderness or swelling. Digits and nails normal, no deformity : kidney or bladder not palpable Labs/imaging reviewed. Past medical history, past surgical history, family history, social history, allergy reviewed and noted as below Family hx: no hx of CKD. 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 urine pro/cr 160 mg/day Objective - Vital Signs/Intake and Output Vital Signs (last 24 hours): Temp Pulse Resp BP Pulse Ox 98 F 89 20 113/69 96 07/21/17 08:00 07/21/17 08:00 07/21/17 08:00 07/21/17 08:00 07/21/17 08:00 Intake and Output: 07/21/17 07/21/17 06:59 18:59 Intake Total 96867 Balance 90928 - Medications Medications: Current Medications Albuterol/Ipratropium (Duoneb 3 Mg/0.5 Mg (3 Ml) Ud) 3 ml INH RQ6 [facility] Last Admin: 07/21/17 13:57 Dose: 3 ml Amlodipine Besylate (Norvasc) 5 mg PO 0800 [facility] Last Admin: 07/21/17 08:13 Dose: 5 mg Artificial Tears (Artificial Tears) 1 ml OU Q4 [facility] Last Admin: 07/21/17 12:12 Dose: 1 drop Azithromycin (Zithromax) 500 mg PO DAILY [facility] Last Admin: 07/21/17 11:04 Dose: 500 mg Calcium Carbonate (Oscal) 500 mg PO DAILY [facility] Last Admin: 07/21/17 11:05 Dose: 500 mg Ergocalciferol (Drisdol 50,000 Intl Units Cap) 1 cap PO Q7D [facility] Last Admin: 07/14/17 22:21 Dose: Not Given Famotidine (Pepcid) 20 mg PO BID [facility] Last Admin: 07/21/17 11:05 Dose: 20 mg Guaifenesin (Mucinex [place]) 600 mg PO BID [facility] Last Admin: 07/21/17 11:04 Dose: 600 mg Home Med (Home Med) 2 unit PO 0600,1900 [facility] Last Admin: 07/21/17 06:02 Dose: 2 unit Hydroxychloroquine Sulfate (Plaquenil) 200 mg PO 0800,1800 [facility] Methylprednisolone (Solu-Medrol) 60 mg IV Q6H [facility] Last Admin: 07/21/17 12:12 Dose: 60 mg Montelukast Sodium (Singulair) 5 mg PO HS [facility] Last Admin: 07/20/17 22:36 Dose: 5 mg Promethazine HCl/Codeine (Phenergan/Codeine Oral Syrup) 5 ml PO Q4 PRN PRN Reason: Cough Last Admin: 07/21/17 08:22 Dose: 5 ml Roflumilast (Daliresp) 500 mcg PO DAILY [facility] Last Admin: 07/21/17 11:04 Dose: 500 mcg Fluticasone/Salmeterol (Advair Diskus 500/50) 1 puff INH RQ12 [facility] Last Admin: 07/21/17 07:40 Dose: 1 puff Temazepam (Restoril) 15 mg PO HS PRN PRN Reason: Insomnia Last Admin: 07/20/17 22:29 Dose: 15 mg Tiotropium [place] (Spiriva) 18 mcg INH RQ24 [facility] Last Admin: 07/21/17 07:40 Dose: 18 mcg - Labs Labs: 07/18/17 07:36 07/18/17 07:36
[2017-07-21] MEDS: Ergocalciferol 50,000 Intl Units Cap PO SCH (21:24)
[2017-07-22] MEDS: Aritificial Tears (15ml) OU SCH ×4 (00:39→12:09)
[2017-07-22] MEDS: Albuterol-Ipratrop 3 mg / 0.5 (3 ml) UD INH SCH ×3 (01:48→14:00)
[2017-07-22] MEDS: Home Med 1 UNIT PO SCH (05:22)
[2017-07-22] MEDS: Tiotropium 18 mcg Cap For Inhalation INH SCH (07:38)
[2017-07-22] MEDS: Fluticasone-Salmeterol 500-50mcg Diskus INH SCH (07:38)
[2017-07-22 08:07] VITALS: O2SAT 96
[2017-07-22 08:23] LABS: EOS % 0.1 % (0.0-4.0); HEMATOCRIT 31.8 % (34.0-47.0); LYMPH # 0.5 K/uL (1.0-4.3); LYMPH % 3.7 % (20.0-40.0); MEAN CELL VOLUME 83.3 fL (81.0-99.0); MEAN CORPUSCULAR HGB CONC 32.4 g/dL (33.0-37.0); MEAN PLATELET VOLUME 7.7 fL (7.2-11.7); MONO # 0.5 K/uL (0.0-0.8); MONO % 3.8 % (0.0-10.0); NRBC % 0.1 % (0.0-2.0); PLATELET COUNT 330 K/uL (130-400); RED CELL DISTRIBUTION WIDTH 13.8 % (11.5-14.5); WHITE BLOOD COUNT 13.3 K/uL (4.8-10.8)
[2017-07-22] MEDS: guaiFENesin 600 mg ER Tab PO SCH (09:22)
[2017-07-22 09:44] LABS: NEUTROPHIL 89 % (50-75); TOTAL CELLS COUNTED 100
--- NOTE | 2017-07-22 15:45 | CP.PCM.PN ---
Subjective - Date & Time of Evaluation Date of Evaluation: 07/22/17 Time of Evaluation: 15:45 - Subjective Subjective: Follow up Nephrology Consultation: Assessment: Stable Acute asthma exacerbation Sjogren syndrome with renal involvement (s/p kidney biopsy aug 2016) Hypertensive Chronic Kidney Disease (I12.9) Chronic Kidney Disease (N18.3) Stage 3 without proteinuria Anemia (D64.9), HTN (I12.9) Obesity Plan No acute need for renal replacement therapy at this time. Hypertension control with meds as ordered. Monitor Input/Output, daily weights and renal function with basic metabolic panel continue with Myfortic 2 tab bid. she is on IV steroids hence home dose prednisone 5 mg can be deferred. d/c cellcept as pt already on myfortic. she is also on plaquenil Dose meds/antibiotics for reduced GFR. Avoid fleets enema/magnesium based laxatives. Avoid nephrotoxins/NSAIDs/ iodinated contrast (unless needed emergently) Glycemic control Further work up/management as per primary team Thanks for allowing me to participate in care of your patient. Will follow patient with you. Please call if any Qs Dr Zaid Wilson Office: [phone] Chief Complaint; none today HPI: Pt is a 71 F with hx of bronchil asthma, obesity, CKD stage 3 (baseline cr 1.8) Sjogren syndrome with renal involvement (s/p kidney biopsy aug 2016) treated with plaquenil, myfortic and low dose prednisone came to hospital with c /o SOB with cough for last few days and being managed for asthma exacerbation. renal consult for CKD management Denies chest pain, palpitation, says improved shortness of breath, denies leg swelling. wants to go home Physical Examination: General Appearance: Comfortable, in no acute respiratory distress, co-operative . obese Vitals reviewed and noted as below Head; Atraumatic, normocephalic ENT: no ulcers no thrush. Tongue is midline. Oropharynx: no rash or ulcers. EYES: Pupils are equal, round and reactive to light accommodation. Eye muscles and extraocular movement intact. Sclera is anicteric. Neck; supple no lymphadenopathy, no thyromegaly or bruit Lungs: normal respiratory rate/effort. Breath sounds bilateral clearer today. Heart: Normal rate. s1s2 normal. No rub or gallop. Extremities: no edema. No varicose veins Neurological: Patient is alert, awake and oriented to person, place and time. No focal deficit. Strength bilateral appropriate and equal Skin: Warm and dry. Normal turgor. No rash. Palpitation: Normal elasticity for age Abdomen: Abdomen is soft. Bowel sounds +. There is no abdominal tenderness, no guarding/rigidity no organomegaly Psych: normal insight and normal affect/mood MSK: no joint tenderness or swelling. Digits and nails normal, no deformity : kidney or bladder not palpable Labs/imaging reviewed. Past medical history, past surgical history, family history, social history, allergy reviewed and noted as below Family hx: no hx of CKD. 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 urine pro/cr 160 mg/day Objective - Vital Signs/Intake and Output Vital Signs (last 24 hours): Temp Pulse Resp BP Pulse Ox 98 F 97 H 20 142/82 96 07/22/17 08:06 07/22/17 08:06 07/22/17 08:06 07/22/17 08:06 07/22/17 08:06 Intake and Output: 07/22/17 07/22/17 06:59 18:59 Intake Total 1050 Balance 1050 - Medications Medications: Current Medications Albuterol/Ipratropium (Duoneb 3 Mg/0.5 Mg (3 Ml) Ud) 3 ml INH RQ6 [facility] Last Admin: 07/22/17 14:00 Dose: 3 ml Amlodipine Besylate (Norvasc) 5 mg PO 0800 [facility] Last Admin: 07/22/17 07:55 Dose: 5 mg Artificial Tears (Artificial Tears) 1 ml OU Q4 [facility] Last Admin: 07/22/17 12:09 Dose: 1 drop Azithromycin (Zithromax) 500 mg PO DAILY [facility] Last Admin: 07/22/17 09:19 Dose: 500 mg Calcium Carbonate (Oscal) 500 mg PO DAILY [facility] Last Admin: 07/22/17 09:19 Dose: 500 mg Ergocalciferol (Drisdol 50,000 Intl Units Cap) 1 cap PO Q7D [facility] Last Admin: 07/21/17 21:24 Dose: 1 cap Famotidine (Pepcid) 20 mg PO BID [facility] Last Admin: 07/22/17 09:19 Dose: 20 mg Guaifenesin (Mucinex [place]) 600 mg PO BID [facility] Last Admin: 07/22/17 09:22 Dose: 600 mg Home Med (Home Med) 2 unit PO 0600,1900 [facility] Last Admin: 07/22/17 05:22 Dose: 2 unit Hydroxychloroquine Sulfate (Plaquenil) 200 mg PO 0800,1800 [facility] Last Admin: 07/22/17 07:55 Dose: 200 mg Methylprednisolone (Solu-Medrol) 60 mg IV Q6H [facility] Last Admin: 07/22/17 12:08 Dose: 60 mg Montelukast Sodium (Singulair) 5 mg PO HS [facility] Last Admin: 07/20/17 22:36 Dose: 5 mg Promethazine HCl/Codeine (Phenergan/Codeine Oral Syrup) 5 ml PO Q4 PRN PRN Reason: Cough Last Admin: 07/21/17 17:54 Dose: 5 ml Roflumilast (Daliresp) 500 mcg PO DAILY [facility] Last Admin: 07/22/17 09:19 Dose: 500 mcg Fluticasone/Salmeterol (Advair Diskus 500/50) 1 puff INH RQ12 [facility] Last Admin: 07/22/17 07:38 Dose: 1 puff Temazepam (Restoril) 15 mg PO HS PRN PRN Reason: Insomnia Last Admin: 07/21/17 21:24 Dose: 15 mg Tiotropium [place] (Spiriva) 18 mcg INH RQ24 [facility] Last Admin: 07/22/17 07:38 Dose: 18 mcg - Labs Labs: 07/22/17 08:04 07/18/17 07:36
--- NOTE | 2017-07-22 16:39 | CP.PCM.DIS ---
Provider - Provider Date of Admission: 07/14/17 17:42 Attending physician: Cori Pitts MD Time Spent in preparation of Discharge (in minutes): 30 Hospital Course - Lab Results Lab Results: Micro Results 07/14/17 15:50 Blood Blood Culture - Final NO GROWTH AFTER 5 DAYS 07/14/17 15:50 Blood Gram Stain - Final TEST NOT PERFORMED 07/14/17 16:20 Blood Blood Culture - Final NO GROWTH AFTER 5 DAYS 07/14/17 16:20 Blood Gram Stain - Final TEST NOT PERFORMED Most Recent Lab Values WBC 13.3 K/uL (4.8-10.8) H 07/22/17 08:04 RBC 3.82 Mil/uL (3.80-5.20) 07/22/17 08:04 Hgb 10.3 g/dL (11.0-16.0) L 07/22/17 08:04 Hct 31.8 % (34.0-47.0) L 07/22/17 08:04 MCV 83.3 fL (81.0-99.0) 07/22/17 08:04 MCH 27.0 pg (27.0-31.0) 07/22/17 08:04 MCHC 32.4 g/dL (33.0-37.0) L 07/22/17 08:04 RDW 13.8 % (11.5-14.5) 07/22/17 08:04 Plt Count 330 K/uL (130-400) 07/22/17 08:04 MPV 7.7 fL (7.2-11.7) 07/22/17 08:04 Neut % (Auto) 92.4 % (50.0-75.0) H 07/22/17 08:04 Lymph % (Auto) 3.7 % (20.0-40.0) L 07/22/17 08:04 [place] % (Auto) 3.8 % (0.0-10.0) 07/22/17 08:04 Eos % (Auto) 0.1 % (0.0-4.0) 07/22/17 08:04 Baso % (Auto) 0.0 % (0.0-2.0) 07/22/17 08:04 Neut # 12.3 K/uL (1.8-7.0) H 07/22/17 08:04 Lymph # 0.5 K/uL (1.0-4.3) L 07/22/17 08:04 [place] # 0.5 K/uL (0.0-0.8) 07/22/17 08:04 Eos # 0.0 K/uL (0.0-0.7) 07/22/17 08:04 Baso # 0.0 K/uL (0.0-0.2) 07/22/17 08:04 Neutrophils % (Manual) 89 % (50-75) H 07/22/17 08:04 Band Neutrophils % 4 % (0-2) H 07/22/17 08:04 Lymphocytes % (Manual) 5 % (20-40) L 07/22/17 08:04 Monocytes % (Manual) 2 % (0-10) 07/22/17 08:04 Platelet Estimate Normal (NORMAL) 07/22/17 08:04 Poikilocytosis (manual Slight 07/22/17 08:04 D-Dimer, Quantitative 544 ng/mlDDU (0-243) H 07/14/17 16:42 Sodium 139 mmol/L (132-148) 07/18/17 07:36 Potassium 4.1 mmol/L (3.6-5.2) 07/18/17 07:36 Chloride 106 mmol/L (98-107) 07/18/17 07:36 Carbon Dioxide 23 mmol/L (22-30) 07/18/17 07:36 Anion Gap 14 (10-20) 07/18/17 07:36 BUN 29 mg/dL (7-17) H 07/18/17 07:36 Creatinine 1.5 mg/dL (0.7-1.2) H 07/18/17 07:36 Est GFR ( Amer) 42 07/18/17 07:36 Est GFR (Non-Af Amer) 34 07/18/17 07:36 Random Glucose 129 mg/dL (65-105) H 07/18/17 07:36 Calcium 7.8 mg/dl (8.6-10.4) L 07/18/17 07:36 Total Bilirubin 0.4 mg/dL (0.2-1.3) 07/17/17 07:30 AST 26 U/L (14-36) 07/17/17 07:30 ALT 39 U/L (9-52) 07/17/17 07:30 Alkaline Phosphatase 39 U/L (38-126) 07/17/17 07:30 NT-Pro-B Natriuret Pep 121 pg/mL (0-900) 07/14/17 16:01 Total Protein 5.8 g/dL (6.3-8.3) L 07/17/17 07:30 Albumin 3.4 g/dL (3.5-5.0) L 07/17/17 07:30 Globulin 2.4 gm/dL (2.2-3.9) 07/17/17 07:30 Albumin/Globulin Ratio 1.4 (1.0-2.1) 07/17/17 07:30 Stool Occult Blood Negative (NEGATIVE) 07/17/17 22:53 - Hospital Course Hospital Course: Pt was admitted with status ashtmaticus treated with iv steroids nebs singulair and spiriva added pt was followed by pulmnologyst and renal pt showed significant improvemt. Discharge Exam - Head Exam Head Exam: ATRAUMATIC, NORMOCEPHALIC - Eye Exam Eye Exam: Normal appearance - ENT Exam ENT Exam: Mucous Membranes Moist - Respiratory Exam Respiratory Exam: NORMAL BREATHING PATTERN. absent: Rhonchi, Wheezes - Cardiovascular Exam Cardiovascular Exam: REGULAR RHYTHM Discharge Plan - Discharge Medications Prescriptions: Montelukast [Singulair] 10 mg PO HS 30 Days tab Tiotropium [Spiriva] 18 mcg INH RQ24 #30 cap - Follow Up Plan Condition: FAIR Disposition: HOME/ ROUTINE
[2017-07-22 17:05] VITALS: BP 144/78; PULSE 98; TEMP 98.2
== END 2017-07-22 18:05 | disposition home or self-care (01) | DRG 203 ==
LOC: C.ER 15:15 → C.9E 17:42 → C.6T 18:51 → C.3T 07-20 12:35
PROVIDERS: ADMIT Internal Medicine; ATTEND Internal Medicine
DX: J45.902 Unspecified asthma with status asthmaticus (principal); I12.9 Hypertensive chronic kidney disease with stage 1 through stage 4 chronic kidney disease, or unspecified chronic kidney disease; M35.00 Sjogren syndrome, unspecified; N18.3 Chronic kidney disease, stage 3 (moderate); E78.00 Pure hypercholesterolemia, unspecified; T38.0X5A Adverse effect of glucocorticoids and synthetic analogues, initial encounter; D64.9 Anemia, unspecified; M81.0 Age-related osteoporosis without current pathological fracture; M89.9 Disorder of bone, unspecified; K21.9 Gastro-esophageal reflux disease without esophagitis; E66.9 Obesity, unspecified; Z86.73 Personal history of transient ischemic attack (TIA), and cerebral infarction without residual deficits; Z90.710 Acquired absence of both cervix and uterus